=== PATIENT | female | born 1950 | race Caucasian/White ===

== ENCOUNTER → 2016-06-28 | Outpatient (REF) | payer BC ==
[2016-06-28 15:46] LABS: ALBUMIN 3.9 GM/DL (3.2-5.2); ALBUMIN/GLOBULIN RATIO 1.18 (1.00-1.93); ALKALINE PHOSPHATASE 115 U/L (45-117); ALT/SGPT 25 U/L (12-78); ANION GAP 9 MEQ/L (8-16); AST/SGOT 16 U/L (15-37); BILIRUBIN,TOTAL 0.9 MG/DL (0.2-1.0); BLOOD UREA NITROGEN 12 MG/DL (7-18); CALCIUM LEVEL 8.9 MG/DL (8.8-10.2); CARBON DIOXIDE LEVEL 28 MEQ/L (21-32); CHLORIDE LEVEL 105 MEQ/L (98-107); CHOLESTEROL LEVEL 273 MG/DL (<200); CREATININE FOR GFR 0.83 MG/DL (0.55-1.02); GLOMERULAR FILTRATION RATE > 60.0 (>45); GLUCOSE, FASTING 186 MG/DL (80-110); POTASSIUM SERUM 4.4 MEQ/L (3.5-5.1); SODIUM LEVEL 142 MEQ/L (136-145); TOTAL PROTEIN 7.2 GM/DL (6.4-8.2); TRIGLYCERIDES LEVEL 280 MG/DL (<150)
== END ==
LOC: M SFHCSACK 08:34
PROVIDERS: ATTEND Physician Assistant
DX: I10 Essential (primary) hypertension (principal); E78.2 Mixed hyperlipidemia; E11.65 Type 2 diabetes mellitus with hyperglycemia

== ENCOUNTER → 2016-10-02 | Outpatient (REF) | payer BC ==
[2016-10-02 16:57] LABS: ALBUMIN/GLOBULIN RATIO 1.25 (1.00-1.93); ALKALINE PHOSPHATASE 116 U/L (45-117); ALT/SGPT 36 U/L (12-78); ANION GAP 7 MEQ/L (8-16); AST/SGOT 22 U/L (15-37); BLOOD UREA NITROGEN 14 MG/DL (7-18); CARBON DIOXIDE LEVEL 32 MEQ/L (21-32); CHLORIDE LEVEL 103 MEQ/L (98-107); CHOLESTEROL LEVEL 167 MG/DL (<200); CREATININE FOR GFR 0.87 MG/DL (0.55-1.02); GLOMERULAR FILTRATION RATE > 60.0 (>45); GLUCOSE, FASTING 163 MG/DL (80-110); POTASSIUM SERUM 3.6 MEQ/L (3.5-5.1); SODIUM LEVEL 142 MEQ/L (136-145); TOTAL PROTEIN 7.2 GM/DL (6.4-8.2); TRIGLYCERIDES LEVEL 208 MG/DL (<150)
== END ==
LOC: M SFHCSACK 08:45
PROVIDERS: ATTEND Physician Assistant
DX: I10 Essential (primary) hypertension (principal); E11.65 Type 2 diabetes mellitus with hyperglycemia; E78.2 Mixed hyperlipidemia

== ENCOUNTER → 2016-12-09 | Outpatient (CLI) | payer BC ==
--- NOTE | 2016-12-10 06:24 | REP ---
Clinical: Pain. Trauma. Technique: AP, lateral, bilateral oblique views of the right ankle. Findings: Age-related arthritic changes are appreciated along with findings to suggest old injuries. Overlying acute soft tissue swelling noted. No acute fracture dislocation. 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 Acute soft tissue swelling. No acute fracture or dislocation identified. Signed by Anjel Platt MD 12/10/2016 06:16 A
== END ==
LOC: M ADAMS 14:12
PROVIDERS: ATTEND Physician Assistant
DX: M25.571 Pain in right ankle and joints of right foot (principal)

== ENCOUNTER → 2017-02-17 | Outpatient (REF) | payer BC ==
[2017-02-17 17:18] LABS: ALBUMIN 3.8 GM/DL (3.2-5.2); ALBUMIN/GLOBULIN RATIO 1.19 (1.00-1.93); BILIRUBIN,TOTAL 1.4 MG/DL (0.2-1.0); CALCIUM LEVEL 8.6 MG/DL (8.8-10.2); CREATININE FOR GFR 1.84 MG/DL (0.55-1.02); FREE T4 0.96 NG/DL (0.76-1.46); GLOMERULAR FILTRATION RATE 29.1 (>45)
[2017-02-17 17:53] LABS: BASO % 0.2 % (0.0-1.0); EOS # 0.1 K/mm3 (0.0-0.50); EOS % 1.3 % (0.0-3.0); LARGE UNSTAINED CELL # 0.1 K/mm3 (0.0-0.4); LYMPH % 19.7 % (24.0-44.0); MEAN CORPUSCULAR HEMOGLOBIN 34.1 pg (27.0-33.0); MEAN CORPUSCULAR HGB CONC 34.9 g/dl (32.0-36.5); MEAN CORPUSCULAR VOLUME 97.7 fl (80.0-96.0); MONO # 0.7 K/mm3 (0.0-0.8); MONO % 6.9 % (0.0-5.0); NEUTROPHILS % 70.9 % (36.0-66.0); PLATELET COUNT, AUTOMATED 209 k/mm3 (150-450); RED CELL DISTRIBUTION WIDTH 12.2 % (11.5-14.5); WHITE BLOOD COUNT 9.9 K/mm3 (4.0-10.0)
== END ==
LOC: M SFHCSACK 10:26
PROVIDERS: ATTEND Physician Assistant
DX: R53.83 Other fatigue (principal); I10 Essential (primary) hypertension; F41.9 Anxiety disorder, unspecified; E11.65 Type 2 diabetes mellitus with hyperglycemia; E78.2 Mixed hyperlipidemia

== ENCOUNTER → 2017-05-21 | Outpatient (REF) | payer BC ==
[2017-05-21 15:22] LABS: BASO % 0.5 % (0.0-1.0); EOS # 0.2 10^3/uL (0.0-0.50); IMMATURE GRANULOCYTE % 0.4 % (0-0); LYMPH # 1.9 10^3/uL (1.5-4.5); LYMPH % 22.5 % (24.0-44.0); MEAN CORPUSCULAR HEMOGLOBIN 32.9 pg (27.0-33.0); MEAN CORPUSCULAR HGB CONC 34.1 g/dl (32.0-36.5); MEAN CORPUSCULAR VOLUME 96.5 fl (80.0-96.0); MONO # 0.6 10^3/uL (0.0-0.8); MONO % 7.3 % (0.0-5.0); NEUTROPHILS # 5.7 10^3/uL (1.8-7.7); NEUTROPHILS % 67.3 % (36.0-66.0); PLATELET COUNT, AUTOMATED 170 10^3/uL (150-450); RED CELL DISTRIBUTION WIDTH 11.9 % (11.5-14.5); WHITE BLOOD COUNT 8.4 10^3/uL (4.0-10.0)
[2017-05-21 15:34] LABS: ALBUMIN/GLOBULIN RATIO 1.21 (1.00-1.93); ALKALINE PHOSPHATASE 102 U/L (45-117); ALT/SGPT 26 U/L (12-78); ANION GAP 10 MEQ/L (8-16); AST/SGOT 20 U/L (7-37); BILIRUBIN,TOTAL 1.5 MG/DL (0.2-1.0); BLOOD UREA NITROGEN 13 MG/DL (7-18); CALCIUM LEVEL 9.2 MG/DL (8.8-10.2); CARBON DIOXIDE LEVEL 28 MEQ/L (21-32); CHLORIDE LEVEL 100 MEQ/L (98-107); CHOLESTEROL LEVEL 192 MG/DL (<200); CREATININE FOR GFR 0.96 MG/DL (0.55-1.02); GLOMERULAR FILTRATION RATE > 60.0 (>45); GLUCOSE, FASTING 154 MG/DL (80-110); POTASSIUM SERUM 4.2 MEQ/L (3.5-5.1); SODIUM LEVEL 138 MEQ/L (136-145); TOTAL PROTEIN 7.3 GM/DL (6.4-8.2); TRIGLYCERIDES LEVEL 319 MG/DL (<150)
[2017-05-21 15:57] LABS: POS COUNT POS FLAG
[2017-05-21 16:00] LABS: PLT CLUMPS? POS FLAG
== END ==
LOC: M SFHCSACK 08:53
PROVIDERS: ATTEND Physician Assistant
DX: I10 Essential (primary) hypertension (principal); E11.65 Type 2 diabetes mellitus with hyperglycemia; E78.2 Mixed hyperlipidemia; E55.9 Vitamin D deficiency, unspecified

== ENCOUNTER 2017-06-27 13:29 | Emergency (ER) | payer BC ==
[2017-06-27 14:06] LABS: BASO % 0.4 % (0.0-1.0); EOS # 0.1 10^3/uL (0.0-0.50); EOS % 1.3 % (0.0-3.0); HEMATOCRIT 42.8 % (36.0-47.0); HEMOGLOBIN 15.2 g/dl (12.0-16.0); IMMATURE GRANULOCYTE # 0.1 10^3/uL (0-0); IMMATURE GRANULOCYTE % 0.8 % (0-0); LYMPH # 1.6 10^3/uL (1.5-4.5); LYMPH % 15.2 % (24.0-44.0); MEAN CORPUSCULAR HEMOGLOBIN 34.2 pg (27.0-33.0); MEAN CORPUSCULAR HGB CONC 35.5 g/dl (32.0-36.5); MEAN CORPUSCULAR VOLUME 96.2 fl (80.0-96.0); MONO # 0.8 10^3/uL (0.0-0.8); MONO % 7.2 % (0.0-5.0); NEUTROPHILS % 75.1 % (36.0-66.0); PLATELET COUNT, AUTOMATED 205 10^3/uL (150-450); RED BLOOD COUNT 4.45 10^6/uL (4.00-5.40); RED CELL DISTRIBUTION WIDTH 11.9 % (11.5-14.5); WHITE BLOOD COUNT 10.7 10^3/uL (4.0-10.0)
[2017-06-27 14:07] LABS: ALBUMIN 4.1 GM/DL (3.2-5.2); ALBUMIN/GLOBULIN RATIO 1.28 (1.00-1.93); ALKALINE PHOSPHATASE 101 U/L (45-117); ALT/SGPT 27 U/L (12-78); ANION GAP 8 MEQ/L (8-16); AST/SGOT 23 U/L (7-37); BILIRUBIN,DIRECT 0.2 MG/DL (0.0-0.2); BILIRUBIN,TOTAL 1.3 MG/DL (0.2-1.0); BLOOD UREA NITROGEN 16 MG/DL (7-18); CALCIUM LEVEL 9.2 MG/DL (8.8-10.2); CARBON DIOXIDE LEVEL 27 MEQ/L (21-32); CHLORIDE LEVEL 103 MEQ/L (98-107); CREATININE FOR GFR 0.88 MG/DL (0.55-1.02); GLOMERULAR FILTRATION RATE > 60.0 (>45); GLUCOSE, FASTING 144 MG/DL (80-110); POTASSIUM SERUM 3.7 MEQ/L (3.5-5.1); SODIUM LEVEL 138 MEQ/L (136-145); TOTAL PROTEIN 7.3 GM/DL (6.4-8.2)
[2017-06-27] MEDS: LIDOCAINE 2% W/EPIN INJ 20ML **PRES FREE INJ (15:18)
== END 2017-06-27 16:44 | disposition home or self-care (01) ==
LOC: M ED 13:29
DX: S06.0X0A Concussion without loss of consciousness, initial encounter (principal); S51.011A Laceration without foreign body of right elbow, initial encounter; R11.10 Vomiting, unspecified; W19.XXXA Unspecified fall, initial encounter; Y92.098 Other place in other non-institutional residence as the place of occurrence of the external cause; Y93.89 Activity, other specified; Y99.8 Other external cause status; I10 Essential (primary) hypertension; E78.9 Disorder of lipoprotein metabolism, unspecified; E11.9 Type 2 diabetes mellitus without complications; Z87.891 Personal history of nicotine dependence; Z79.899 Other long term (current) drug therapy; Z79.84 Long term (current) use of oral hypoglycemic drugs
CPT/HCPCS: 70450

== ENCOUNTER → 2017-07-09 | Outpatient (CLI) | payer BC | LOC: M ADAMS 10:10 | DX: M25.561 Pain in right knee (principal); M17.9 Osteoarthritis of knee, unspecified | CPT/HCPCS: 73564 ==

== ENCOUNTER → 2017-08-18 | Outpatient (REF) | payer BC ==
[2017-08-18 14:12] LABS: BASO % 0.3 % (0.0-1.0); EOS # 0.1 10^3/uL (0.0-0.50); EOS % 1.2 % (0.0-3.0); HEMATOCRIT 40.4 % (36.0-47.0); HEMOGLOBIN 14.4 g/dl (12.0-16.0); IMMATURE GRANULOCYTE % 1.3 % (0-3.0); LYMPH # 1.8 10^3/uL (1.5-4.5); LYMPH % 29.5 % (24.0-44.0); MEAN CORPUSCULAR HEMOGLOBIN 33.4 pg (27.0-33.0); MEAN CORPUSCULAR HGB CONC 35.6 g/dl (32.0-36.5); MEAN CORPUSCULAR VOLUME 93.7 fl (80.0-96.0); MONO # 0.5 10^3/uL (0.0-0.8); MONO % 8.7 % (0.0-5.0); NEUTROPHILS # 3.6 10^3/uL (1.8-7.7); PLATELET COUNT, AUTOMATED 258 10^3/uL (150-450); RED BLOOD COUNT 4.31 10^6/uL (4.00-5.40); RED CELL DISTRIBUTION WIDTH 11.5 % (11.5-14.5); WHITE BLOOD COUNT 6.1 10^3/uL (4.0-10.0)
[2017-08-18 14:29] LABS: ALBUMIN 3.9 GM/DL (3.2-5.2); ALBUMIN/GLOBULIN RATIO 1.26 (1.00-1.93); ALKALINE PHOSPHATASE 102 U/L (45-117); ALT/SGPT 31 U/L (12-78); ANION GAP 8 MEQ/L (8-16); AST/SGOT 15 U/L (7-37); BILIRUBIN,TOTAL 1.1 MG/DL (0.2-1.0); BLOOD UREA NITROGEN 12 MG/DL (7-18); CALCIUM LEVEL 9.1 MG/DL (8.8-10.2); CARBON DIOXIDE LEVEL 28 MEQ/L (21-32); CHLORIDE LEVEL 106 MEQ/L (98-107); CHOLESTEROL LEVEL 125 MG/DL (<200); CHOLESTEROL RISK RATIO 3.205 (<5); CREATININE FOR GFR 0.75 MG/DL (0.55-1.30); GLOMERULAR FILTRATION RATE > 60.0 (>45); GLUCOSE, FASTING 190 MG/DL (70-100); HDL CHOLESTEROL 39 MG/DL (>40); LDL CHOLESTEROL 33.2 MG/DL (<100); NON-HDL-C 86 MG/DL; POTASSIUM SERUM 3.5 MEQ/L (3.5-5.1); SODIUM LEVEL 142 MEQ/L (136-145); TOTAL 25(OH) VITAMIN D 58.8 NG/ML (30.0-100.0); TRIGLYCERIDES LEVEL 264 MG/DL (<150)
[2017-08-18 14:32] LABS: ESTIMATED AVERAGE GLUCOSE 154 MG/DL (60-110)
[2017-08-20 11:47] LABS: HEPATITIS B SURFACE ANTIBODY NEGATIVE (POSITIVE)
== END ==
LOC: M SFHCSACK 10:51
DX: I10 Essential (primary) hypertension (principal); E78.2 Mixed hyperlipidemia; E11.65 Type 2 diabetes mellitus with hyperglycemia; E55.9 Vitamin D deficiency, unspecified
CPT/HCPCS: 80053

== ENCOUNTER → 2017-12-03 | Outpatient (REF) | payer MEDICARE ==
[2017-12-03 11:27] LABS: BASO % 0.4 % (0.0-1.0); EOS # 0.1 10^3/uL (0.0-0.50); HEMATOCRIT 41.2 % (36.0-47.0); HEMOGLOBIN 14.3 g/dl (12.0-15.5); IMMATURE GRANULOCYTE % 0.7 % (0-3.0); LYMPH # 2.2 10^3/uL (1.5-4.5); MEAN CORPUSCULAR HGB CONC 34.7 g/dl (32.0-36.5); MEAN CORPUSCULAR VOLUME 97.9 fl (80.0-96.0); MONO # 0.7 10^3/uL (0.0-0.8); NEUTROPHILS # 6.9 10^3/uL (1.8-7.7); NEUTROPHILS % 68.9 % (36.0-66.0); PLATELET COUNT, AUTOMATED 254 10^3/uL (150-450); RED BLOOD COUNT 4.21 10^6/uL (4.00-5.40); RED CELL DISTRIBUTION WIDTH 12.5 % (11.5-14.5)
[2017-12-03 11:44] LABS: TOTAL 25(OH) VITAMIN D 38.8 NG/ML (30.0-100.0)
[2017-12-03 11:45] LABS: ALBUMIN/GLOBULIN RATIO 1.11 (1.00-1.93); ALKALINE PHOSPHATASE 106 U/L (45-117); ALT/SGPT 20 U/L (12-78); ANION GAP 13 MEQ/L (8-16); AST/SGOT 16 U/L (7-37); BILIRUBIN,TOTAL 1.5 MG/DL (0.2-1.0); BLOOD UREA NITROGEN 18 MG/DL (7-18); CALCIUM LEVEL 8.9 MG/DL (8.8-10.2); CARBON DIOXIDE LEVEL 23 MEQ/L (21-32); CHLORIDE LEVEL 103 MEQ/L (98-107); CHOLESTEROL LEVEL 216 MG/DL (<200); CREATININE FOR GFR 1.18 MG/DL (0.55-1.30); GLOMERULAR FILTRATION RATE 48.6 (>45); GLUCOSE, FASTING 149 MG/DL (70-100); HDL CHOLESTEROL 60 MG/DL (>40); NON-HDL-C 156 MG/DL; POTASSIUM SERUM 4.1 MEQ/L (3.5-5.1); SODIUM LEVEL 139 MEQ/L (136-145); TOTAL PROTEIN 7.6 GM/DL (6.4-8.2); TRIGLYCERIDES LEVEL 190 MG/DL (<150)
[2017-12-03 11:48] LABS: ESTIMATED AVERAGE GLUCOSE 148 MG/DL (60-110); HEMOGLOBIN A1c 6.8 %
== END ==
LOC: M LABDRAW1 09:37
DX: I10 Essential (primary) hypertension (principal); E78.2 Mixed hyperlipidemia; E11.65 Type 2 diabetes mellitus with hyperglycemia; E55.9 Vitamin D deficiency, unspecified
CPT/HCPCS: 80053

== ENCOUNTER → 2018-05-06 | Outpatient (REF) | payer MEDICARE, BC ==
[2018-05-06 14:26] LABS: BASO # 0.1 10^3/uL (0.0-0.2); BASO % 0.4 % (0.0-1.0); EOS # 0.1 10^3/uL (0.0-0.50); EOS % 1.1 % (0.0-3.0); HEMATOCRIT 43.3 % (36.0-47.0); HEMOGLOBIN 15.4 g/dl (12.0-15.5); IMMATURE GRANULOCYTE % 0.5 % (0-3.0); LYMPH # 2.5 10^3/uL (1.5-4.5); LYMPH % 21.6 % (24.0-44.0); MEAN CORPUSCULAR HEMOGLOBIN 34.5 pg (27.0-33.0); MEAN CORPUSCULAR HGB CONC 35.6 g/dl (32.0-36.5); MEAN CORPUSCULAR VOLUME 96.9 fl (80.0-96.0); MONO # 0.9 10^3/uL (0.0-0.8); MONO % 7.8 % (0.0-5.0); NEUTROPHILS # 7.8 10^3/uL (1.8-7.7); NEUTROPHILS % 68.6 % (36.0-66.0); PLATELET COUNT, AUTOMATED 227 10^3/uL (150-450); RED BLOOD COUNT 4.47 10^6/uL (4.00-5.40); RED CELL DISTRIBUTION WIDTH 11.6 % (11.5-14.5); WHITE BLOOD COUNT 11.3 10^3/uL (4.0-10.0)
[2018-05-06 14:29] LABS: ALBUMIN/GLOBULIN RATIO 1.08 (1.00-1.93); ALKALINE PHOSPHATASE 112 U/L (45-117); ALT/SGPT 30 U/L (12-78); ANION GAP 11 MEQ/L (8-16); AST/SGOT 25 U/L (7-37); BILIRUBIN,TOTAL 1.8 MG/DL (0.2-1.0); BLOOD UREA NITROGEN 16 MG/DL (7-18); CALCIUM LEVEL 9.1 MG/DL (8.8-10.2); CARBON DIOXIDE LEVEL 28 MEQ/L (21-32); CHLORIDE LEVEL 99 MEQ/L (98-107); CHOLESTEROL LEVEL 224 MG/DL (<200); CREATININE FOR GFR 0.89 MG/DL (0.55-1.30); FREE T4 1.02 NG/DL (0.76-1.46); GLOMERULAR FILTRATION RATE > 60.0 (>45); GLUCOSE, FASTING 144 MG/DL (70-100); HDL CHOLESTEROL 56 MG/DL (>40); LDL CHOLESTEROL 122 MG/DL (<100); NON-HDL-C 168 MG/DL; POTASSIUM SERUM 3.6 MEQ/L (3.5-5.1); SODIUM LEVEL 138 MEQ/L (136-145); TOTAL PROTEIN 7.7 GM/DL (6.4-8.2); TRIGLYCERIDES LEVEL 231 MG/DL (<150)
[2018-05-06 14:46] LABS: MALB URINE SIEMENS 13.3 MG/L; MAU/CREAT RATIO 8.2 MCG/MG (0.0-30.0)
[2018-05-06 16:16] LABS: ESTIMATED AVERAGE GLUCOSE 140 MG/DL (60-110); HEMOGLOBIN A1c 6.5 %
== END ==
LOC: M SFHCSACK 08:45
DX: E78.2 Mixed hyperlipidemia (principal); I10 Essential (primary) hypertension; Z13.29 Encounter for screening for other suspected endocrine disorder; E11.65 Type 2 diabetes mellitus with hyperglycemia; E55.9 Vitamin D deficiency, unspecified
CPT/HCPCS: 84443

== ENCOUNTER → 2018-11-09 | Outpatient (REF) | payer MEDICARE, BC ==
[~2018-11-09] MED LIST: AMLO5TAB6 PO; ATOR80TA59 PO; CART240C3 PO; FARX1TAB3 PO; HYDR25TAB PO; LOSA100T50 PO; METF10004 PO; SERT-155 PO; VITA50005 PO; ZOFR4TAB14 PO
== END ==
LOC: M SFHCSACK 08:43
PROVIDERS: ATTEND Physician Assistant
DX: I10 Essential (primary) hypertension (principal); E78.2 Mixed hyperlipidemia; E11.65 Type 2 diabetes mellitus with hyperglycemia; E55.9 Vitamin D deficiency, unspecified; Z53.8 Procedure and treatment not carried out for other reasons

== ENCOUNTER → 2018-11-17 | Outpatient (REF) | payer MEDICARE, BC ==
[2018-11-17 13:23] LABS: BASO % 0.3 % (0.0-1.0); EOS # 0.2 10^3/uL (0.0-0.50); EOS % 2.4 % (0.0-3.0); HEMATOCRIT 41.2 % (36.0-47.0); HEMOGLOBIN 14.4 g/dl (12.0-15.5); LYMPH # 1.6 10^3/uL (1.5-4.5); LYMPH % 21.8 % (24.0-44.0); MONO # 0.5 10^3/uL (0.0-0.8); MONO % 6.6 % (0.0-5.0); NEUTROPHILS # 5.1 10^3/uL (1.8-7.7); NEUTROPHILS % 68.5 % (36.0-66.0); PLATELET COUNT, AUTOMATED 228 10^3/uL (150-450); RED BLOOD COUNT 4.12 10^6/uL (4.00-5.40); WHITE BLOOD COUNT 7.5 10^3/uL (4.0-10.0)
[2018-11-17 13:32] LABS: ALT/SGPT 29 U/L (12-78); BILIRUBIN,TOTAL 1.3 MG/DL (0.2-1.0); BLOOD UREA NITROGEN 10 MG/DL (7-18); CALCIUM LEVEL 9.6 MG/DL (8.8-10.2); CARBON DIOXIDE LEVEL 27 MEQ/L (21-32); CHLORIDE LEVEL 103 MEQ/L (98-107); CREATININE FOR GFR 0.85 MG/DL (0.55-1.30); GLOMERULAR FILTRATION RATE > 60.0 (>45); GLUCOSE, FASTING 171 MG/DL (70-100); POTASSIUM SERUM 3.9 MEQ/L (3.5-5.1); SODIUM LEVEL 138 MEQ/L (136-145)
[2018-11-17 14:05] LABS: HEMOGLOBIN A1c 7.4 %
== END ==
LOC: M SFHCSACK 10:17
PROVIDERS: ATTEND Physician Assistant
DX: I10 Essential (primary) hypertension (principal); E78.2 Mixed hyperlipidemia; E11.65 Type 2 diabetes mellitus with hyperglycemia; E55.9 Vitamin D deficiency, unspecified

== ENCOUNTER 2019-01-19 09:44 | Emergency (ER) | payer BC, MEDICARE ==
[~2019-01-19] VITALS: Ht 162.6 cm; Wt 72.7 kg
[~2019-01-19 09:44] MED LIST changes: -SERT-155 PO; +SERT50TA29 PO
[2019-01-19] MEDS ORDERED: BUPIVACAINE HCL 0.5% 30 ML VIAL SC ONE (11:15)
[2019-01-19 11:46] LABS: BASO % 0.3 % (0.0-1.0); EOS % 0.2 % (0.0-3.0); HEMATOCRIT 39.8 % (36.0-47.0); HEMOGLOBIN 13.8 g/dl (12.0-15.5); LYMPH # 0.8 10^3/uL (1.5-4.5); LYMPH % 5.4 % (24.0-44.0); MEAN CORPUSCULAR HEMOGLOBIN 34.9 pg (27.0-33.0); MEAN CORPUSCULAR HGB CONC 34.7 g/dl (32.0-36.5); MEAN CORPUSCULAR VOLUME 100.8 fl (80.0-96.0); MONO # 1.1 10^3/uL (0.0-0.8); MONO % 7.5 % (0.0-5.0); NEUTROPHILS % 86.2 % (36.0-66.0); PLATELET COUNT, AUTOMATED 246 10^3/uL (150-450); RED BLOOD COUNT 3.95 10^6/uL (4.00-5.40); WHITE BLOOD COUNT 15.1 10^3/uL (4.0-10.0)
[2019-01-19] MEDS ORDERED: ISOVUE-370 76% 100ML VIAL (Q9967) As Ordered ONE (11:56)
[2019-01-19 12:10] LABS: ERYTHROCYTE SEDIMENTATION RATE 70 mm/hr (0-30)
[2019-01-19 12:15] LABS: FREE T4 1.26 NG/DL (0.76-1.46)
[2019-01-19 12:34] LABS: MONO SCRN NEGATIVE (NEGATIVE)
--- NOTE | 2019-01-19 12:36 | REP ---
Clinical: Trauma/fall with chest pain. Technique: Axial contrast enhanced images from the thoracic inlet to the upper abdomen with coronal and sagittal re-formations. Comparison: None. Findings: Lung rangel demonstrate age-related scattered chronic interstitial changes including biapical and bibasilar scarring. No significant focal consolidation/contusion, pleural effusion, or pneumothorax. Trace right basilar atelectasis cannot be excluded. Small noncalcified nodular densities primarily noted in the right upper lung zone measuring up to approximately 5 mm (image 38) are identified. Evaluation of the mediastinum demonstrates atherosclerotic changes to the thoracic aorta and coronary arteries without aortic aneurysm or dissection. No cardiomegaly or pericardial effusion identified. Nonspecific mediastinal lymph nodes measure up to approximately 9.6 mm short axis diameter. Surrounding musculoskeletal structures demonstrate age-related degenerative changes without evidence for acute trauma/injury or fracture. Impression: 1. Chronic-appearing scattered interstitial changes and scarring. No consolidation, contusion, or effusion. 2. New small nodules up to 5 mm primarily noted in the right upper lung zone. No prior examinations available for comparison. Consider follow-up examination in 6-9 months. Electronically Signed by Anjel Platt MD 01/19/2019 12:27 P
--- NOTE | 2019-01-19 13:37 | REP ---
SOFT-TISSUE NECK CT STUDY WITH IV CONTRAST: HISTORY: Neck and upper chest pain after a fall. Soft tissue swelling. CT CONTRAST DOSE: 100 mL of intravenous Isovue [address] FINDINGS: Thyroid lobes are homogeneous and normal in appearance. Parotid and submandibular glands are normal and symmetric. There is no visible neck mass. There is soft tissue swelling in the anterior neck soft tissues posterior to the external jugular veins and anterior to the thyroid and upper trachea. This is deep to the distal sternocleidomastoid muscles. No adenopathy is appreciated. There is some vascular calcification at the carotid bifurcations. No other vascular abnormality is appreciated. Visualized intracranial structures are unremarkable. The paranasal sinuses are clear. No fracture is seen. There is mild degenerative disc disease noted at the each level in the cervical spine. This is most pronounced at C5-6 and C6-7. The epiglottis appears intact. There is no evidence of thyroid cartilage disruption. The arytenoid cartilages are normal and symmetric in appearance and position. No glottic or subglottic airway narrowing is seen. Hyoid bone is intact. IMPRESSION: There is an area of soft tissue swelling deep to the distal sternocleidomastoid muscles and anterior to the thyroid in the anterior/inferior neck consistent with soft tissue injury. Otherwise negative. No evidence of airway disruption. Electronically Signed by Clinton Mondragon MD 01/19/2019 02:24 P
[2019-01-19 13:58] VITALS: BP 219/97
--- NOTE | 2019-01-25 21:02 | ED PDOC ---
Post-Departure Follow-Up rosaline plata faxed formal report of ct chest for fu Miracle Granado MD Jan 25, 2019 21:01
== END 2019-01-19 14:17 | disposition home or self-care (01) ==
LOC: M ED 09:44
DX: R22.1 Localized swelling, mass and lump, neck (principal); M54.2 Cervicalgia; R91.8 Other nonspecific abnormal finding of lung field; I10 Essential (primary) hypertension; Z91.81 History of falling; Z87.891 Personal history of nicotine dependence; Z79.899 Other long term (current) drug therapy; Z79.84 Long term (current) use of oral hypoglycemic drugs
CPT/HCPCS: 20552; 70491; 71260; 80047; 84439; 84443; 85025; 85652; 86308; 99284; Q9967

== ENCOUNTER → 2019-02-26 | Outpatient (REF) | payer MEDICARE ==
[~2019-02-26] MED LIST changes: +SERT-155 PO; -SERT50TA29 PO
[2019-02-26 15:49] LABS: ALBUMIN 3.3 GM/DL (3.2-5.2); ALT/SGPT 29 U/L (12-78); BILIRUBIN,TOTAL 1.2 MG/DL (0.2-1.0); BLOOD UREA NITROGEN 10 MG/DL (7-18); CALCIUM LEVEL 8.8 MG/DL (8.8-10.2); CARBON DIOXIDE LEVEL 26 MEQ/L (21-32); CHLORIDE LEVEL 103 MEQ/L (98-107); CHOLESTEROL LEVEL 133 MG/DL (<200); CHOLESTEROL RISK RATIO 3.694 (<5); GLOMERULAR FILTRATION RATE > 60.0 (>45); GLUCOSE, FASTING 322 MG/DL (70-100); HDL CHOLESTEROL 36 MG/DL (>40); LDL CHOLESTEROL 55 MG/DL (<100); NON-HDL-C 97 MG/DL; POTASSIUM SERUM 4.1 MEQ/L (3.5-5.1); SODIUM LEVEL 138 MEQ/L (136-145); TOTAL PROTEIN 6.2 GM/DL (6.4-8.2); TRIGLYCERIDES LEVEL 211 MG/DL (<150)
[2019-02-26 15:57] LABS: TOTAL 25(OH) VITAMIN D 55.7 NG/ML (30.0-100.0)
[2019-02-26 15:58] LABS: BASO % 0.5 % (0.0-1.0); EOS # 0.2 10^3/uL (0.0-0.5); EOS % 3.6 % (0.0-3.0); HEMATOCRIT 38.1 % (36.0-47.0); HEMOGLOBIN 12.8 g/dl (12.0-15.5); LYMPH # 1.6 10^3/uL (1.5-5.0); LYMPH % 25.2 % (24.0-44.0); MEAN CORPUSCULAR HEMOGLOBIN 33.9 pg (27.0-33.0); MEAN CORPUSCULAR HGB CONC 33.6 g/dl (32.0-36.5); MEAN CORPUSCULAR VOLUME 100.8 fl (80.0-96.0); MONO # 0.4 10^3/uL (0.0-0.8); MONO % 7.2 % (0.0-5.0); NEUTROPHILS # 3.9 10^3/uL (1.5-8.5); PLATELET COUNT, AUTOMATED 244 10^3/uL (150-450); RED BLOOD COUNT 3.78 10^6/uL (4.00-5.40); WHITE BLOOD COUNT 6.1 10^3/uL (4.0-10.0)
[2019-02-26 16:21] LABS: MALB URINE SIEMENS 11.4 MG/L; MAU/CREAT RATIO 8.2 MCG/MG (0.0-30.0)
[2019-02-26 16:22] LABS: HEMOGLOBIN A1c 12.4 %
== END ==
LOC: M SFHCSACK 08:21
PROVIDERS: ATTEND Physician Assistant
DX: I10 Essential (primary) hypertension (principal); E78.2 Mixed hyperlipidemia; E11.65 Type 2 diabetes mellitus with hyperglycemia; E55.9 Vitamin D deficiency, unspecified

== ENCOUNTER → 2019-03-19 | Outpatient (CLI) | payer MEDICARE ==
[~2019-03-19] MED LIST changes: +E-Z-GAS II EFFERVESCENT PACKET (SODIUM BICARB./CITRIC ACID/SIMETHICONE) As Ordered ONE; +E-Z-HD 98% w/w 340GM SUSP BTL As Ordered ONE; +E-Z-PAQUE 96% w/w SUSP 176GM BTL As Ordered ONE
--- NOTE | 2019-03-19 15:23 | REP ---
Examination Requested: Esophagram Barium Swallow Reason For Exam/Comment: Dysphasia Esophagram: The procedure was performed MEENAKSHI Rose, under the direct supervision of Dr. Deutsch. The images were reviewed with Dr. Deutsch. A single PA chest x-ray is submitted as a freight flagman film. The superior mediastinal structures are midline. The heart size is within normal limits. The lungs are clear. Liquid barium and gas producing granules were given in the erect position as well as liquid barium in the prone oblique position, in order to perform a double contrast esophagram examination. Oral and pharyngeal stages of the examination were unremarkable. Esophageal transport is efficient and there is no esophagitis, stricture, or mucosal ring noted. There is a small hiatal hernia . Gastroesophageal reflux is visualized to the thoracic inlet. Impression: 1. Small hiatal hernia. 2. Gastroesophageal reflux to the thoracic inlet. 0.2 minutes of fluoroscopy time was utilized for this procedure. Some fluoroscopic images are performed with last image hold technology. These images require no additional radiation. Reviewed by MEENAKSHI Schwartz 03/19/2019 01:41 P Electronically Signed by Mello Deutsch MD 03/19/2019 03:14 P
== END ==
LOC: M RAD 08:05
PROVIDERS: ATTEND Nurse Practitioner
DX: R13.10 Dysphagia, unspecified (principal); K44.9 Diaphragmatic hernia without obstruction or gangrene; K21.9 Gastro-esophageal reflux disease without esophagitis

== ENCOUNTER 2019-04-01 08:25 | Day surgery (SDC) | payer MEDICARE ==
[~2019-04-01] VITALS: Ht 162.6 cm; Wt 65.3 kg
[~2019-04-01 08:25] MED LIST changes: -E-Z-GAS II EFFERVESCENT PACKET (SODIUM BICARB./CITRIC ACID/SIMETHICONE) As Ordered ONE; -E-Z-HD 98% w/w 340GM SUSP BTL As Ordered ONE; -E-Z-PAQUE 96% w/w SUSP 176GM BTL As Ordered ONE; +NS 1,000 ML IV ONE
[2019-04-01] MEDS ORDERED: PROPOFOL 200 MG/20 ML VIAL As Ordered ONE (09:21)
[2019-04-01] MEDS ORDERED: LIDOCAINE 2% INJ 100 MG/5 ML SDV (FOR ANES.) As Ordered ONE (09:21)
--- NOTE | 2019-04-01 09:54 | ROOR ---
Patient Name: Aishwarya Duke Procedure Date: 04/01/2019 9:41 AM Date of : 1950 Age: 69 Room: [facility] Gender: Female Note Status: Finalized Procedure: Upper GI endoscopy Indications: Dysphagia Providers: Yordy Montero Jr, MD Referring MD: BISMARK Brizuela Pa-c Requesting Provider: Medicines: Propofol per Anesthesia Complications: No immediate complications. Procedure: Pre-Anesthesia Assessment: - Prior to the procedure, a History and Physical was performed, and patient medications and allergies were reviewed. The patient is competent. The risks and benefits of the procedure and the sedation options and risks were discussed with the patient. All questions were answered and informed consent was obtained. Patient identification and proposed procedure were verified by the physician and the nurse in the pre-procedure area and in the procedure room. Mental Status Examination: alert and oriented. Airway Examination: normal oropharyngeal airway and neck mobility. Respiratory Examination: clear to auscultation. CV Examination: normal. ASA Grade Assessment: II - A patient with mild systemic disease. After reviewing the risks and benefits, the patient was deemed in satisfactory condition to undergo the procedure. The anesthesia plan was to use moderate sedation / analgesia (conscious sedation). Immediately prior to administration of medications, the patient was re-assessed for adequacy to receive sedatives. The heart rate, respiratory rate, oxygen saturations, blood pressure, adequacy of pulmonary ventilation, and response to care were monitored throughout the procedure. The physical status of the patient was re-assessed after the procedure. The Endoscope was introduced through the mouth, and advanced to the second part of duodenum. The upper GI endoscopy was accomplished without difficulty. The patient tolerated the procedure well. Findings: The upper third of the esophagus, middle third of the esophagus, lower third of the esophagus and gastroesophageal junction were normal. The cardia, gastric fundus and gastric body were normal. Scattered moderate inflammation characterized by congestion (edema), erythema, friability and granularity was found in the gastric antrum and in the prepyloric region of the stomach. Biopsies were taken with a cold forceps for histology. The duodenal bulb, first portion of the duodenum and second portion of the duodenum were normal. Impression: - Normal upper third of esophagus, middle third of esophagus, lower third of esophagus and gastroesophageal junction. - Normal cardia, gastric fundus and gastric body. - Gastritis. Biopsied. - Normal duodenal bulb, first portion of the duodenum and second portion of the duodenum. Recommendation: - Discharge patient to home (ambulatory). - Return to my office as previously scheduled. Yordy Montero MD Yordy Montero Jr, MD 04/01/2019 9:54:12 AM Electronically signed by Yordy Montero Jr, MD Number of Addenda: 0 Note Initiated On: 04/01/2019 9:41 AM Estimated Blood Loss: Estimated blood loss: none.
--- NOTE | 2019-04-01 10:13 | ROOR ---
Patient Name: Aishwarya Duke Procedure Date: 04/01/2019 9:42 AM Date of : 1950 Age: 69 Room: [facility] Gender: Female Note Status: Finalized Procedure: Colonoscopy Indications: High risk colon cancer surveillance: Personal history of colonic polyps Providers: Yordy Montero Jr, MD Referring MD: BISMARK Brizuela Pa-c Requesting Provider: Medicines: Propofol per Anesthesia Complications: No immediate complications. Procedure: Pre-Anesthesia Assessment: - Prior to the procedure, a History and Physical was performed, and patient medications and allergies were reviewed. The patient is competent. The risks and benefits of the procedure and the sedation options and risks were discussed with the patient. All questions were answered and informed consent was obtained. Patient identification and proposed procedure were verified by the physician and the nurse in the pre-procedure area and in the procedure room. Mental Status Examination: alert and oriented. Airway Examination: normal oropharyngeal airway and neck mobility. Respiratory Examination: clear to auscultation. CV Examination: normal. ASA Grade Assessment: II - A patient with mild systemic disease. After reviewing the risks and benefits, the patient was deemed in satisfactory condition to undergo the procedure. The anesthesia plan was to use moderate sedation / analgesia (conscious sedation). Immediately prior to administration of medications, the patient was re-assessed for adequacy to receive sedatives. The heart rate, respiratory rate, oxygen saturations, blood pressure, adequacy of pulmonary ventilation, and response to care were monitored throughout the procedure. The physical status of the patient was re-assessed after the procedure. The Colonoscope was introduced through the anus and advanced to the cecum, identified by appendiceal orifice and ileocecal valve. The colonoscopy was performed without difficulty. The patient tolerated the procedure well. The quality of the bowel preparation was adequate. Findings: The rectum, descending colon, transverse colon, ascending colon, cecum, appendiceal orifice and ileocecal valve appeared normal. Multiple small and large-mouthed diverticula were found in the sigmoid colon. A diminutive polyp was found in the sigmoid colon. The polyp was removed with a jumbo cold forceps. Resection and retrieval were complete. Impression: - The rectum, descending colon, transverse colon, ascending colon, cecum, appendiceal orifice and ileocecal valve are normal. - Diverticulosis in the sigmoid colon. - One diminutive polyp in the sigmoid colon, removed with a jumbo cold forceps. Resected and retrieved. Recommendation: - Repeat colonoscopy in 5-10 years for surveillance based on pathology results. Yordy Montero MD Yordy Montero Jr, MD 04/01/2019 10:12:57 AM Electronically signed by Yordy Montero Jr, MD Number of Addenda: 0 Note Initiated On: 04/01/2019 9:42 AM Estimated Blood Loss: Estimated blood loss: none.
[2019-04-01 10:25] VITALS: BP 128/65
== END 2019-04-01 10:45 | disposition home or self-care (01) ==
LOC: M OPP 08:25
PROVIDERS: ATTEND Surgery
DX: Z86.010 Personal history of colon polyps (principal); K57.30 Diverticulosis of large intestine without perforation or abscess without bleeding; D12.5 Benign neoplasm of sigmoid colon; R63.4 Abnormal weight loss; K29.70 Gastritis, unspecified, without bleeding; R13.10 Dysphagia, unspecified; E11.9 Type 2 diabetes mellitus without complications; Z79.84 Long term (current) use of oral hypoglycemic drugs; Z79.899 Other long term (current) drug therapy; Z87.891 Personal history of nicotine dependence

== ENCOUNTER → 2019-05-12 | Outpatient (REF) | payer MEDICARE ==
[~2019-05-12] MED LIST changes: -NS 1,000 ML IV ONE; -SERT-155 PO; +SERT50TA29 PO
[2019-05-12 14:12] LABS: BASO % 0.3 % (0.0-1.0); EOS # 0.2 10^3/uL (0.0-0.5); EOS % 2.5 % (0.0-3.0); HEMATOCRIT 42.8 % (36.0-47.0); HEMOGLOBIN 14.6 g/dl (12.0-15.5); LYMPH # 2.4 10^3/uL (1.5-5.0); LYMPH % 27.4 % (24.0-44.0); MEAN CORPUSCULAR HEMOGLOBIN 31.7 pg (27.0-33.0); MEAN CORPUSCULAR HGB CONC 34.1 g/dl (32.0-36.5); MEAN CORPUSCULAR VOLUME 92.8 fl (80.0-96.0); MONO # 0.5 10^3/uL (0.0-0.8); MONO % 5.4 % (0.0-5.0); NEUTROPHILS # 5.7 10^3/uL (1.5-8.5); NEUTROPHILS % 64.1 % (36.0-66.0); PLATELET COUNT, AUTOMATED 237 10^3/uL (150-450); RED BLOOD COUNT 4.61 10^6/uL (4.00-5.40); WHITE BLOOD COUNT 8.8 10^3/uL (4.0-10.0)
[2019-05-12 14:24] LABS: ALBUMIN 3.9 GM/DL (3.2-5.2); ALT/SGPT 28 U/L (12-78); BILIRUBIN,TOTAL 1.3 MG/DL (0.2-1.0); BLOOD UREA NITROGEN 13 MG/DL (7-18); CALCIUM LEVEL 9.7 MG/DL (8.8-10.2); CARBON DIOXIDE LEVEL 28 MEQ/L (21-32); CHLORIDE LEVEL 103 MEQ/L (98-107); CHOLESTEROL LEVEL 155 MG/DL (<200); CHOLESTEROL RISK RATIO 3.163 (<5); CREATININE FOR GFR 0.79 MG/DL (0.55-1.30); FERRITIN 146 NG/ML (8-252); GLOMERULAR FILTRATION RATE > 60.0 (>45); GLUCOSE, FASTING 300 MG/DL (70-100); HDL CHOLESTEROL 49 MG/DL (>40); IRON (FE) 66 UG/DL (50-170); LDL CHOLESTEROL 71 MG/DL (<100); NON-HDL-C 106 MG/DL; PERCENT SATURATION 21.6 % (13.2-45.0); POTASSIUM SERUM 3.9 MEQ/L (3.5-5.1); SODIUM LEVEL 137 MEQ/L (136-145); TOTAL IRON BINDING CAPACITY 305 UG/DL (250-450); TRIGLYCERIDES LEVEL 176 MG/DL (<150)
[2019-05-12 14:26] LABS: TOTAL 25(OH) VITAMIN D 47.6 NG/ML (30.0-100.0)
[2019-05-12 14:34] LABS: HEMOGLOBIN A1c 12.4 %
== END ==
LOC: M SFHCSACK 09:49
PROVIDERS: ATTEND Physician Assistant
DX: D64.9 Anemia, unspecified (principal); E78.2 Mixed hyperlipidemia; F41.9 Anxiety disorder, unspecified; E55.9 Vitamin D deficiency, unspecified; E11.65 Type 2 diabetes mellitus with hyperglycemia

== ENCOUNTER → 2019-07-14 | Outpatient (REF) | payer MEDICARE | LOC: M LABDRWAD 13:27 | PROVIDERS: ATTEND Internal Medicine Endocrinology, Diabetes & Metabolism | DX: E11.65 Type 2 diabetes mellitus with hyperglycemia (principal) ==

== ENCOUNTER → 2019-08-02 | Outpatient (CLI) | payer MEDICARE ==
--- NOTE | 2019-08-02 10:53 | REP ---
Clinical: Follow up abnormal findings. Technique: Axial noncontrast images from the thoracic inlet to the upper abdomen eighth coronal and sagittal re-formations. Comparison: 01/02/2019 Findings: Lung rangel demonstrate chronic stable scattered scarring and interstitial changes along with small scattered subpleural densities, solid, partially calcified, and nonsolid nodular lesions which are either stable or have resolved when compared to prior examination. As example, the posterior right lower lobe nodule which measured approximately 7 mm has completely resolved on current examination. No new area of consolidation, significant nodule or mass lesion appreciated. No effusion. No pneumothorax. Tracheobronchial tree is patent. No significant adenopathy. Atherosclerotic changes to the thoracic aorta and coronary arteries noted without aortic aneurysm or cardiomegaly. No pericardial effusion. Musculoskeletal structures demonstrate age-related changes without acute focal abnormality. Impression: 1. Chronic stable changes as compared to prior examination including scattered solid and non solid nodules. Few previously identified nodules have also resolved and may have represented small focal areas of transient atelectasis. 2. No acute significant mediastinal or pleuroparenchymal process appreciated. Electronically Signed by Anjel Platt MD 08/02/2019 10:45 A
== END ==
LOC: M RAD 09:56
PROVIDERS: ATTEND Internal Medicine Pulmonary Disease
DX: R91.8 Other nonspecific abnormal finding of lung field (principal)

== ENCOUNTER → 2019-08-24 | Outpatient (REF) | payer MEDICARE ==
[2019-08-24 13:41] LABS: BASO % 0.4 % (0.0-1.0); EOS # 0.4 10^3/uL (0.0-0.5); EOS % 4.9 % (0.0-3.0); HEMATOCRIT 42.6 % (36.0-47.0); HEMOGLOBIN 14.6 g/dl (12.0-15.5); LYMPH # 2.4 10^3/uL (1.5-5.0); LYMPH % 26.8 % (24.0-44.0); MEAN CORPUSCULAR HEMOGLOBIN 32.7 pg (27.0-33.0); MEAN CORPUSCULAR HGB CONC 34.3 g/dl (32.0-36.5); MEAN CORPUSCULAR VOLUME 95.5 fl (80.0-96.0); MONO # 0.5 10^3/uL (0.0-0.8); MONO % 5.9 % (0.0-5.0); NEUTROPHILS # 5.5 10^3/uL (1.5-8.5); NEUTROPHILS % 61.7 % (36.0-66.0); PLATELET COUNT, AUTOMATED 232 10^3/uL (150-450); RED BLOOD COUNT 4.46 10^6/uL (4.00-5.40)
[2019-08-24 14:03] LABS: TOTAL 25(OH) VITAMIN D 71.4 NG/ML (30.0-100.0)
[2019-08-24 14:22] LABS: ALBUMIN 4.3 GM/DL (3.2-5.2); ALT/SGPT 20 U/L (12-78); BILIRUBIN,TOTAL 1.1 MG/DL (0.2-1.0); BLOOD UREA NITROGEN 13 MG/DL (7-18); CALCIUM LEVEL 9.5 MG/DL (8.8-10.2); CARBON DIOXIDE LEVEL 29 MEQ/L (21-32); CHLORIDE LEVEL 105 MEQ/L (98-107); CREATININE FOR GFR 0.84 MG/DL (0.55-1.30); GLOMERULAR FILTRATION RATE > 60.0 (>45); GLUCOSE, FASTING 121 MG/DL (70-100); POTASSIUM SERUM 4.3 MEQ/L (3.5-5.1); SODIUM LEVEL 141 MEQ/L (136-145); TOTAL PROTEIN 7.1 GM/DL (6.4-8.2)
== END ==
LOC: M LABDRWAD 12:39
PROVIDERS: ATTEND Physician Assistant
DX: E55.9 Vitamin D deficiency, unspecified (principal); E11.65 Type 2 diabetes mellitus with hyperglycemia; E78.2 Mixed hyperlipidemia; I10 Essential (primary) hypertension; Z79.899 Other long term (current) drug therapy

== ENCOUNTER → 2019-08-24 | Outpatient (REF) | payer MEDICARE ==
[2019-08-24 15:45] LABS: BLOOD UREA NITROGEN 13 MG/DL (7-18); GLUCOSE, FASTING 121 MG/DL (70-100)
[2019-08-24 15:46] LABS: CALCIUM LEVEL 9.5 MG/DL (8.8-10.2); CARBON DIOXIDE LEVEL 29 MEQ/L (21-32); CHLORIDE LEVEL 105 MEQ/L (98-107); CREATININE FOR GFR 0.84 MG/DL (0.55-1.30); GLOMERULAR FILTRATION RATE > 60.0 (>45); POTASSIUM SERUM 4.3 MEQ/L (3.5-5.1); SODIUM LEVEL 141 MEQ/L (136-145)
== END ==
LOC: M LABDRWAD 12:36
PROVIDERS: ATTEND Nurse Practitioner Family
DX: E11.65 Type 2 diabetes mellitus with hyperglycemia (principal)

== ENCOUNTER → 2020-06-06 | Outpatient (REF) | payer MEDICARE ==
[~2020-06-06] MED LIST changes: +AMLO1TAB24 PO; -AMLO5TAB6 PO
[2020-06-06 12:19] LABS: BASO % 0.5 % (0.0-1.0); EOS # 0.5 10^3/uL (0.0-0.5); EOS % 6.3 % (0.0-3.0); HEMATOCRIT 44.7 % (36.0-47.0); HEMOGLOBIN 14.8 g/dl (12.0-15.5); LYMPH # 2.4 10^3/uL (1.5-5.0); LYMPH % 29.8 % (24.0-44.0); MEAN CORPUSCULAR HEMOGLOBIN 33.5 pg (27.0-33.0); MEAN CORPUSCULAR HGB CONC 33.1 g/dl (32.0-36.5); MEAN CORPUSCULAR VOLUME 101.1 fl (80.0-96.0); MONO # 0.6 10^3/uL (0.0-0.8); MONO % 7.2 % (0.0-5.0); NEUTROPHILS # 4.4 10^3/uL (1.5-8.5); NEUTROPHILS % 55.8 % (36.0-66.0); PLATELET COUNT, AUTOMATED 210 10^3/uL (150-450); RED BLOOD COUNT 4.42 10^6/uL (4.00-5.40); WHITE BLOOD COUNT 7.9 10^3/uL (4.0-10.0)
[2020-06-06 12:54] LABS: ALT/SGPT 24 U/L (12-78); BILIRUBIN,TOTAL 1.2 MG/DL (0.2-1.0); BLOOD UREA NITROGEN 11 MG/DL (7-18); CALCIUM LEVEL 9.2 MG/DL (8.8-10.2); CARBON DIOXIDE LEVEL 29 MEQ/L (21-32); CHLORIDE LEVEL 106 MEQ/L (98-107); CHOLESTEROL LEVEL 199 MG/DL (<200); CHOLESTEROL RISK RATIO 2.884 (<5); GLOMERULAR FILTRATION RATE > 60.0 (>39); GLUCOSE, FASTING 127 MG/DL (70-100); HDL CHOLESTEROL 69 MG/DL (>40); LDL CHOLESTEROL 103 MG/DL (<100); NON-HDL-C 130 MG/DL; POTASSIUM SERUM 4.5 MEQ/L (3.5-5.1); SODIUM LEVEL 140 MEQ/L (136-145); TOTAL PROTEIN 7.1 GM/DL (6.4-8.2); TRIGLYCERIDES LEVEL 135 MG/DL (<150)
== END ==
LOC: M LAB REF 11:15
PROVIDERS: ATTEND Physician Assistant
DX: E78.5 Hyperlipidemia, unspecified (principal); I10 Essential (primary) hypertension; J45.40 Moderate persistent asthma, uncomplicated; E55.9 Vitamin D deficiency, unspecified; Z79.899 Other long term (current) drug therapy

== ENCOUNTER → 2020-08-30 | Outpatient (CLI) | payer MEDICARE ==
[~2020-08-30] MED LIST changes: +HYDR-3490 PO; -HYDR25TAB PO
--- NOTE | 2020-08-30 11:35 | REP ---
INDICATION: ABN FINDINGS OF LUNG FIELD COMPARISON: None TECHNIQUE: Axial noncontrast images from the thoracic inlet to the upper abdomen with coronal and sagittal reformations. This CT examination was performed using the following dose reduction techniques: Automated exposure control, adjustment of mA and/or kv according to the patient's size, and use of iterative reconstruction technique. FINDINGS: Lung rangel demonstrate chronic stable changes including biapical and scattered scarring, emphysematous changes, and very subtle small areas of ground-glass opacity and primarily non solid nodules. No acute consolidation, new suspicious nodule or mass lesion. No pleural effusion. No pneumothorax. Tracheobronchial tree is patent. Nonspecific mediastinal lymph nodes are unchanged. Further evaluation demonstrates stable atherosclerotic changes to the thoracic aorta and coronary arteries without aortic aneurysm or cardiomegaly. No pericardial effusion. Surrounding musculoskeletal structures demonstrate age-related changes without acute osseous abnormality. IMPRESSION: Stable chronic changes. No acute mediastinal or pleuroparenchymal process. <Electronically signed by Anjel Platt > 08/30/20 [id number]
== END ==
LOC: M RAD 10:37
PROVIDERS: ATTEND Physician Assistant
DX: R91.8 Other nonspecific abnormal finding of lung field (principal)

== ENCOUNTER → 2020-10-05 | Outpatient (REF) | payer MEDICARE ==
[2020-10-05 20:46] LABS: CREATININE, URINE 59.4 MG/DL; MALB URINE SIEMENS < 5.0 MG/L; MAU/CREAT RATIO 8.4 MCG/MG (0.0-30.0)
== END ==
LOC: M LAB REF 15:34
PROVIDERS: ATTEND Nurse Practitioner Family
DX: E11.65 Type 2 diabetes mellitus with hyperglycemia (principal)

== ENCOUNTER → 2020-12-28 | Outpatient (CLI) | payer MEDICARE ==
[~2020-12-28] MED LIST changes: +AMLO1TAB25 PO; +BREO1INH3 INH; +ERGO500029 PO; +JARD1TAB PO; +LOSA100T45 PO; -LOSA100T50 PO; +PROAAER10 INH; +ROXI1TAB2 PO
== END ==
LOC: M WHC 13:49
PROVIDERS: ATTEND Physician Assistant
DX: Z12.31 Encounter for screening mammogram for malignant neoplasm of breast (principal); N63.15 Unspecified lump in the right breast, overlapping quadrants

== ENCOUNTER → 2021-01-10 | Outpatient (CLI) | payer MEDICARE ==
[~2021-01-10] MED LIST changes: -AMLO1TAB25 PO; -LOSA100T45 PO; +LOSA100T50 PO; -PROAAER10 INH; -ROXI1TAB2 PO
== END ==
LOC: M LABSMTC 12:06
PROVIDERS: ATTEND Anesthesiology
DX: Z20.828 Contact with and (suspected) exposure to other viral communicable diseases (principal); Z11.59 Encounter for screening for other viral diseases

== ENCOUNTER → 2021-01-11 | Outpatient (CLI) | payer MEDICARE ==
--- NOTE | 2021-01-11 14:37 | REP ---
INDICATION: ADDITIONAL VIEWS RT BREAST. COMPARISON: Comparison mammography is screening exam 28 December 2020 showing a possible yuliet density on the craniocaudal view. Comparison is also made with July 03, 2015 and November 05, 2013 prior mammograms. TECHNIQUE: Magnified focal spot-compression CC, mL, and MLO views of the right breast are obtained. Targeted right breast sonography is carried out as well. This mammogram was interpreted with the aid of an FDA-approved computer-aided detection system. FINDINGS: Magnified focal spot-compression CC, MLO, and mL views confirm the presence of a relatively low-density 6 mm nodule in the upper outer quadrant. Scattered fibroglandular elements are seen. No other abnormality. No spiculation or microcalcification is observed. The Volpara volumetric breast density pattern is B.. Targeted ultrasound: Targeted right breast sonography is performed from 9:00 to 12:00 in the upper outer quadrant. There is slightly prominent retroareolar ducts at 9 o'clock. Also noted at 9 o'clock is a 7 x 5 x 5 mm hypoechoic lesion 2.8 cm from the nipple. There is some enhanced through transmission but there are internal echoes. This does not meet characteristics of a simple cyst. It has a low K PA number on elastography. IMPRESSION: BIRADS/ACR category 4 suspicious right breast mammographic and sonographic findings. This patient's Tyrer-Cuzick lifetime breast cancer risk assessment score is 2.9%. RECOMMENDATION: Ultrasound-guided needle biopsy hypoechoic nodule right breast with marker clip placement and post clip placement right breast mammography recommended.. The patient letter being requested is M4. <Electronically signed by Yaron Mondragon > 01/11/21 [id number]
== END ==
LOC: M WHC 12:31
PROVIDERS: ATTEND Physician Assistant
DX: N63.11 Unspecified lump in the right breast, upper outer quadrant (principal)

== ENCOUNTER 2021-01-15 07:33 | Day surgery (SDC) | payer MEDICARE ==
[~2021-01-15] VITALS: Ht 162.6 cm; Wt 71.7 kg
[~2021-01-15 07:33] MED LIST changes: +CYCLOPENTOLATE 1% OPHTH SOLN 2 ML BTL OD ONE; +FLURBIPROFEN 0.03% OPHTH SOLN 2.5 ML OD ONE; +LIDOCAINE 1% SDV 5ML VIAL As Ordered ONE; +LOSA100T45 PO; -LOSA100T50 PO; +LR 1,000 ML IV SCH; +PHENYLEPHRINE 2.5% OPHTH SOL 2ML OD ONE; +TETRACAINE 0.5% OPHTH SOLN 4ML OD ONE
[2021-01-15] MEDS ORDERED: BALANCED SALT IRRIGATION SOLUTION 500ML BAG (FOR OR EYE MACHINE) As Ordered ONE (07:38)
[2021-01-15] MEDS ORDERED: MIDAZOLAM INJ 2MG/2ML VIAL (J2250 PER 1MG) As Ordered ONE (11:34)
[2021-01-15] MEDS ORDERED: fentaNYL 100 MCG/2 ML INJECTION As Ordered ONE (11:34)
[2021-01-15 11:58] VITALS: BP 148/69
[2021-03-28] MEDS ORDERED: AMLO1TAB25 PO (10:52)
[2021-05-01] MEDS ORDERED: PROAAER10 INH (09:19)
== END 2021-01-15 12:19 | disposition home or self-care (01) ==
LOC: M SDC 07:33
PROVIDERS: ATTEND Ophthalmology
DX: H25.811 Combined forms of age-related cataract, right eye (principal); I10 Essential (primary) hypertension; E78.5 Hyperlipidemia, unspecified; E11.9 Type 2 diabetes mellitus without complications; K76.0 Fatty (change of) liver, not elsewhere classified; M81.0 Age-related osteoporosis without current pathological fracture; Z79.899 Other long term (current) drug therapy; Z79.84 Long term (current) use of oral hypoglycemic drugs; R91.1 Solitary pulmonary nodule
CPT/HCPCS: 66984; J2250; J3010; V2632

== ENCOUNTER → 2021-01-26 | Outpatient (CLI) | payer MEDICARE ==
[~2021-01-26] MED LIST changes: -CYCLOPENTOLATE 1% OPHTH SOLN 2 ML BTL OD ONE; -FLURBIPROFEN 0.03% OPHTH SOLN 2.5 ML OD ONE; -LIDOCAINE 1% SDV 5ML VIAL As Ordered ONE; -LOSA100T45 PO; +LOSA100T50 PO; -LR 1,000 ML IV SCH; -PHENYLEPHRINE 2.5% OPHTH SOL 2ML OD ONE; -TETRACAINE 0.5% OPHTH SOLN 4ML OD ONE
[2021-01-26 14:20] LABS: BLOOD UREA NITROGEN 11 MG/DL (7-18); CALCIUM LEVEL 9.1 MG/DL (8.8-10.2); CARBON DIOXIDE LEVEL 29 MEQ/L (21-32); CHLORIDE LEVEL 105 MEQ/L (98-107); GLOMERULAR FILTRATION RATE > 60.0 (>39); GLUCOSE, FASTING 144 MG/DL (70-100); POTASSIUM SERUM 4.4 MEQ/L (3.5-5.1); SODIUM LEVEL 140 MEQ/L (136-145)
== END ==
LOC: M PLALAB 08:41
PROVIDERS: ATTEND Surgery
DX: N64.59 Other signs and symptoms in breast (principal)

== ENCOUNTER → 2021-02-07 | Outpatient (CLI) | payer MEDICARE | LOC: M LABSMTC 09:32 | PROVIDERS: ATTEND Anesthesiology | DX: Z01.818 Encounter for other preprocedural examination (principal); Z11.52 Encounter for screening for COVID-19 ==

== ENCOUNTER 2021-02-12 08:59 | Day surgery (SDC) | payer MEDICARE ==
[~2021-02-12] VITALS: Ht 162.6 cm; Wt 69.8 kg
[~2021-02-12 08:59] MED LIST changes: +LIDOCAINE 1% SDV 5ML VIAL As Ordered ONE; +LR 1,000 ML IV SCH
[2021-02-12] MEDS ORDERED: fentaNYL 100 MCG/2 ML INJECTION (J3010) As Ordered ONE (11:39)
[2021-02-12] MEDS ORDERED: MIDAZOLAM INJ 2MG/2ML VIAL (J2250 PER 1MG) As Ordered ONE (11:39)
[2021-02-12] MEDS: TETRACAINE 0.5% OPHTH SOLN 4ML OS SCH ×2 (12:13→12:19)
[2021-02-12] MEDS: FLURBIPROFEN 0.03% OPHTH SOLN 2.5 ML OS SCH ×3 (12:20→12:39)
[2021-02-12] MEDS: PHENYLEPHRINE 2.5% OPHTH SOL 2ML OS SCH ×3 (12:20→12:39)
[2021-02-12] MEDS: CYCLOPENTOLATE 1% OPHTH SOLN 2 ML BTL OS SCH ×3 (12:20→12:39)
[2021-02-12] MEDS ORDERED: DUOVISC (0.50ML VISCOAT/0.85ML PROVISC) OPHTH KIT As Ordered ONE (12:57)
[2021-02-12 14:00] VITALS: BP 155/88
== END 2021-02-12 14:15 | disposition home or self-care (01) ==
LOC: M SDC 08:59
PROVIDERS: ATTEND Ophthalmology
DX: H25.12 Age-related nuclear cataract, left eye (principal); I10 Essential (primary) hypertension; E11.9 Type 2 diabetes mellitus without complications; E78.5 Hyperlipidemia, unspecified; K76.0 Fatty (change of) liver, not elsewhere classified; M17.0 Bilateral primary osteoarthritis of knee; J45.909 Unspecified asthma, uncomplicated; R91.1 Solitary pulmonary nodule; Z79.899 Other long term (current) drug therapy; Z79.84 Long term (current) use of oral hypoglycemic drugs; Z79.51 Long term (current) use of inhaled steroids
CPT/HCPCS: 66984; J2250; J3010; V2632

== ENCOUNTER → 2021-02-14 | Outpatient (CLI) | payer MEDICARE ==
[~2021-02-14] MED LIST changes: -LIDOCAINE 1% SDV 5ML VIAL As Ordered ONE; -LR 1,000 ML IV SCH; +PROHANCE 279.3MG/ML 15ML VIAL As Ordered ONE
--- NOTE | 2021-02-15 08:42 | REP ---
INDICATION: INVERSION OF RT NIPPLE. BI-RADS category 4 conventional breast imaging. COMPARISON: Comparison mammography December 28, 2020 and January 11, 2021. Comparison sonography January 11, 2021. TECHNIQUE: Three Valerie MRI imaging was performed with a dedicated breast coil. Axial, coronal, and sagittal T1 and T2 weighted scans were obtained with and without fat saturation in the usual fashion. The study includes dynamically acquired post gadolinium-enhanced imaging with image subtraction. Maximum intensity projection and multi planar reformation imaging is included as well. This study is interpreted with the aid of Material Mix, an FDA approved computer aided detection (CAD) software program, on a dedicated breast MRI workstation. The gadolinium enhancement dose is 13 mL of intravenous ProHance. FINDINGS: There is a moderate amount of fibroglandular tissue bilaterally corresponding with the mammographic pattern. There is moderate multifocal bilateral background parenchymal enhancement. There is no evidence of axillary lymphadenopathy. There are multiple sub cm foci of T2 hyperintensity in each breast in a symmetrical benign pattern.. The nipples appear bilaterally and symmetrically inverted in there is normal appearing symmetric nipple enhancement bilaterally. T1 and T2 weighted images demonstrate an oval-shaped T2 hyperintense nodule in the right lateral breast at approximately the 9 o'clock position. This may correspond with the sonographic finding. However, it does not demonstrate significant enhancement or spiculation. High-resolution pre and post-contrast T1 and T2 weighted scans show no suspicious morphologic abnormality in either breast. Dynamically acquired sequential postcontrast images show no suspicious area of enhancement and washout kinetics in either breast to suggest malignancy. Subtraction images show no additional abnormality. IMPRESSION: Conventional of the right breast, mammography and ultrasound, was BI-RADS 4. No additional suspicious target seen by MRI. Bilateral symmetric nipple inversion. Ultrasound-guided needle biopsy as previously recommended. <Electronically signed by Yaron Mondragon > 02/15/21 0840
== END ==
LOC: M RAD 14:56
PROVIDERS: ATTEND Surgery
DX: N64.59 Other signs and symptoms in breast (principal)
CPT/HCPCS: A9576; C8908

== ENCOUNTER → 2021-02-22 | Outpatient (CLI) | payer MEDICARE ==
[~2021-02-22] MED LIST changes: -PROHANCE 279.3MG/ML 15ML VIAL As Ordered ONE
[2021-02-22 16:05] VITALS: BP 146/78
--- NOTE | 2021-02-23 08:00 | REP ---
INDICATION: ABN RIGHT BREAST MAMMO/STEREO BX/CK CLIP PLACEMENT. COMPARISON: Comparison mammography December 28, 2020 July 03, 2015, and January 11, 2021. Comparison sonography and MR imaging January 11, 2021 and February 14, 2021. TECHNIQUE: Mediolateral and craniocaudal views of the right breast are obtained post ultrasound-guided needle biopsy and clip placement. This mammogram was interpreted with the aid of an FDA-approved computer-aided detection system. FINDINGS: On the craniocaudal view, the marker clip is seen in good position relative to the nodular opacity seen on the CC view from December 28, 2020 and January 11, 2021. The clip is noted at the 9 o'clock position where the ultrasound target is visualized, and on the mediolateral image, the clip is inferior to the level of the nodule. I do not believe the ultrasound nodule and the mammographic nodule correspond to one another. I note that no additional target was seen on MRI scanning. The Volpara volumetric breast density pattern is b. IMPRESSION: Post clip placement mammography demonstrates that the sonographic nodule at 9 o'clock does not correspond to the mammographically visible nodule in the upper outer quadrant. Given that an MRI study was performed and no additional abnormality is observed in the right breast, I would recommend six-month follow-up right breast mammogram. This patient's Tyrer-Cuzick lifetime breast cancer risk assessment score is 2.7%. RECOMMENDATION: Six-month follow-up right breast mammography suggested. BI-RADS category 3 probably benign. <Electronically signed by Yaron Mondragon > 02/23/21 0755
--- NOTE | 2021-02-23 16:43 | REP ---
INDICATION: R92.8 ABN R BREAST/STEREO BX. COMPARISON: None. TECHNIQUE: The procedure was performed under the direct supervision of Dr. Mondragon. The patient has a history of a 7 x 5 x 5 mm hypoechoic lesion in the 9 o'clock position of the right breast seen on a previous ultrasound dated 01/11/2021. The risks and benefits of the procedure were explained to the patient and informed consent was obtained. The right breast nodule was localized using ultrasound guidance. The skin was prepped and draped in a sterile fashion. Nine 1% Xylocaine was used as a local anesthetic. Using ultrasound guidance a 14-gauge coaxial needle biopsy system was inserted and6 core biopsy samples were obtained. A marker clip (HydroMARK shape 3) was placed at the biopsy site The patient tolerated the procedure well and there were no immediate complications. After the appropriate amount of monitored convalescence, the patient was discharged from the department. EBL: Less than 3 mL FINDINGS: None IMPRESSION: Ultrasound-guided right breast biopsy with marker clip placement (HydroMARK shape 3) <Electronically signed by Clint Marquez > 02/23/21 1511 <Electronically signed by Yaron Mondragon > 02/23/21 [id number]
== END ==
LOC: M WHCPRO 07:05
PROVIDERS: ATTEND Surgery
DX: N63.12 Unspecified lump in the right breast, upper inner quadrant (principal); R92.8 Other abnormal and inconclusive findings on diagnostic imaging of breast

== ENCOUNTER → 2021-03-14 | Outpatient (CLI) | payer MEDICARE ==
[2021-03-14 09:10] VITALS: BP 150/84
== END ==
LOC: M WHCPRO 06:44
PROVIDERS: ATTEND Surgery
DX: R92.8 Other abnormal and inconclusive findings on diagnostic imaging of breast (principal); Z53.8 Procedure and treatment not carried out for other reasons

== ENCOUNTER → 2021-03-28 | Outpatient (CLI) | payer MEDICARE ==
[~2021-03-28] MED LIST changes: +AMLO1TAB25 PO
[2021-03-28 12:04] VITALS: BP 158/82
--- NOTE | 2021-03-29 16:09 | ROOPDOC ---
[facility] Report Of Operation Report of Operation DATE OF PROCEDURE: 03/28/21 DIAGNOSIS: Right breast suspicious mass with single calcification PROCEDURE: Right breast stereotactic biopsy with clip placement SURGEON: Linden Mendez BLOOD LOSS: minimal Lidocaine 1% LOT [id number] Expiration 09/2023 Sodium Bicarbonate 8.4% LOT [id number] Expiration 07/2021 Hydromark clip LOT [id number] Expiration 07/2023 SHAPE : 1 Bx device: Stereotactic Mammotome Revolve Dual Vacuum- assisted Biopsy System 10 G LOT [id number] Expiration 11/2023 REF [id number] Informed consent was obtained in the preop area. The most common risk and possible complications including bleeding, hematoma, bruising, infection, injury to surrounding structures were explained to the patient and patient expressed understanding. Patient was taken to the procedure room and placed prone on the [employer] [facility] Breast Biopsy table with the right breast hanging through the table opening. Right breast was placed into Cranio-Caudal compression and Acetylene Gas Compressor madai images were taken. Suspicious mass with single calcification was identified on t he madai images and target was set. CC approach from the bottom was chosen for this procedure. At this time, since we were able to confirm visibility of the suspicious mass with single calcification and patient tolerated prone positioning allowing to proceed with the biopsy, appropriate time out was done stating patients name, date of , and the procedure to be performed. The right breast in CC compression was prepped in the usual fashion. Plain Lidocaine 1% and 8.4% sodium bicarbonate 10:1 mix was used to anesthetize the skin, the biopsy site and tissues along the anticipated biopsy tract. Small skin incision was made with blade number 11. Mammotome 10 G stereotactic breast biopsy device was inserted through the incision and advanced to the previ ously set coordinates marking the target lesion. Pre-fire imaging was taken to assure appropriate positioning. At this time, Mammotome 10 G breast biopsy device was fired and vacuum assisted biopsies were collected. The biopsy samples were investigated with [employer] system and the nodule with single calcification was observed. Biopsy [facility], marked with patients name and right breast biopsy site, and sent to pathology for evaluation. SHAPE 1 Hydromark clip was placed into the Mammotome biopsy device channel and deployed. Post-deployment imaging was done to assure appropriate clip dep loyment. Clip was noted in the right breast. At this point, paddle CC compression of the right breast was released and manual pressure was held to decrease harmonic effect and to assure hemostasis. No bleeding was noted upon removal of the pressure. Patient was slowly repositioned and placed into sitting position, and then assisted off the table. Post-biopsy mammogram of the right breast was obtained and showed clip in expected position. Postprocedural dressing was placed. Patient tolerated procedure well and was taken to the recovery unit in stable condition. Discharge instructions were discussed with the patient and patient expressed understanding. LINDEN MENDEZ DO Mar 29, 2021 16:09
== END ==
LOC: M WHCPRO 07:50
PROVIDERS: ATTEND Surgery
DX: D24.1 Benign neoplasm of right breast (principal)

== ENCOUNTER → 2021-03-30 | Outpatient (CLI) | payer MEDICARE ==
[2021-03-30 16:29] LABS: BASO % 0.4 % (0.0-1.0); EOS # 0.3 10^3/uL (0.0-0.5); EOS % 2.7 % (0.0-3.0); HEMOGLOBIN 14.9 g/dl (12.0-15.5); LYMPH # 2.7 10^3/uL (1.5-5.0); LYMPH % 27.4 % (24.0-44.0); MEAN CORPUSCULAR HEMOGLOBIN 34.1 pg (27.0-33.0); MEAN CORPUSCULAR HGB CONC 33.9 g/dl (32.0-36.5); MEAN CORPUSCULAR VOLUME 100.7 fl (80.0-96.0); MONO # 0.7 10^3/uL (0.0-0.8); MONO % 6.9 % (2.0-8.0); NEUTROPHILS # 6.1 10^3/uL (1.5-8.5); NEUTROPHILS % 62.1 % (36.0-66.0); PLATELET COUNT, AUTOMATED 259 10^3/uL (150-450); RED BLOOD COUNT 4.37 10^6/uL (4.00-5.40); WHITE BLOOD COUNT 9.8 10^3/uL (4.0-10.0)
[2021-03-30 16:43] LABS: ALBUMIN 4.2 GM/DL (3.2-5.2); ALT/SGPT 31 U/L (12-78); BLOOD UREA NITROGEN 12 MG/DL (7-18); CALCIUM LEVEL 9.7 MG/DL (8.8-10.2); CARBON DIOXIDE LEVEL 28 MEQ/L (21-32); CHLORIDE LEVEL 106 MEQ/L (98-107); CHOLESTEROL LEVEL 154 MG/DL (<200); CHOLESTEROL RISK RATIO 2.444 (<5); CREATININE FOR GFR 0.78 MG/DL (0.55-1.30); GLOMERULAR FILTRATION RATE > 60.0 (>39); GLUCOSE, FASTING 109 MG/DL (70-100); HDL CHOLESTEROL 63 MG/DL (>40); LDL CHOLESTEROL 58 MG/DL (<100); NON-HDL-C 91 MG/DL; POTASSIUM SERUM 4.3 MEQ/L (3.5-5.1); SODIUM LEVEL 141 MEQ/L (136-145); TOTAL PROTEIN 7.3 GM/DL (6.4-8.2); TRIGLYCERIDES LEVEL 166 MG/DL (<150)
[2021-03-30 16:44] LABS: CREATININE, URINE 33.1 MG/DL; MALB URINE SIEMENS < 5.0 MG/L; MAU/CREAT RATIO 15.1 MCG/MG (0.0-30.0)
[2021-03-30 19:29] LABS: HEMOGLOBIN A1c 6.8 %
== END ==
LOC: M LAB 14:44
PROVIDERS: ATTEND Physician Assistant
DX: I10 Essential (primary) hypertension (principal); E11.9 Type 2 diabetes mellitus without complications

== ENCOUNTER → 2021-04-26 | Outpatient (CLI) | payer MEDICARE ==
--- NOTE | 2021-04-26 11:27 | REP ---
INDICATION: PRE OP TESTING. COMPARISON: 08/26/2006 the only prior TECHNIQUE: PA and lateral FINDINGS: The cardiomediastinal silhouette is within normal limits. Mild fibrotic changes are again seen in the lung apical regions increased from the prior exam. The pleural angles are sharp. No definite acute patchy parenchymal opacities have developed. There is no change in the osseous structures. IMPRESSION: Chronic changes as described above. <Electronically signed by Manuel Mann > 04/26/21 [id number]
== END ==
LOC: M WUC 10:36
PROVIDERS: ATTEND Nurse Practitioner Family
DX: Z01.818 Encounter for other preprocedural examination (principal); Z76.89 Persons encountering health services in other specified circumstances

== ENCOUNTER → 2021-04-28 | Outpatient (CLI) | payer MEDICARE ==
[~2021-04-28] MED LIST changes: +PROAAER10 INH
== END ==
LOC: M LABSMTC 10:59
PROVIDERS: ATTEND Anesthesiology
DX: Z01.812 Encounter for preprocedural laboratory examination (principal); Z20.822 Contact with and (suspected) exposure to COVID-19

== ENCOUNTER 2021-05-03 06:20 | Day surgery (SDC) | payer MEDICARE ==
[~2021-05-03] VITALS: Ht 162.6 cm; Wt 72.5 kg
[~2021-05-03 06:20] MED LIST changes: +HEPARIN SOD (PORCINE) 5000UNITS/ML 1ML VIAL/SYRINGE SQ ONE; +LIDOCAINE 1% MDV 20ML VIAL SQ PRN; +LR 1,000 ML IV ONE; +ceFAZolin SOD 2 GM in IV 1 EA IV ONE
[2021-05-03] MEDS ORDERED: BUPIVACAINE HCL 0.25% 30ML VIAL As Ordered ONE (07:15)
[2021-05-03] MEDS ORDERED: LIDOCAINE 1% SDV 30ML VIAL As Ordered ONE (07:15)
[2021-05-03] MEDS ORDERED: propofoL 200 MG/20 ML VIAL As Ordered ONE (07:21)
[2021-05-03] MEDS ORDERED: dexameTHASONE 4 MG/ML 1ML VIAL (J1100 PER 1MG) As Ordered ONE (07:21)
[2021-05-03] MEDS ORDERED: fentaNYL 250 MCG/5 ML INJECTION (J3010) As Ordered ONE (07:21)
[2021-05-03] MEDS ORDERED: MIDAZOLAM INJ 2MG/2ML VIAL (J2250 PER 1MG) As Ordered ONE (07:21)
[2021-05-03] MEDS ORDERED: ONDANSETRON 4MG/2ML VIAL As Ordered ONE (07:21)
[2021-05-03] MEDS ORDERED: LIDOCAINE 2% 100MG/5ML SDV (FOR ANES.) As Ordered ONE (07:21)
[2021-05-03] MEDS ORDERED: ROCURONIUM BROMIDE 50 MG/5 ML VIAL As Ordered ONE (07:21)
[2021-05-03] MEDS ORDERED: ePHEDrine SULFATE 25 MG/5 ML(5MG/ML) SYRINGE As Ordered ONE (08:36)
[2021-05-03] MEDS ORDERED: SUGAMMADEX SODIUM 500 MG/5 ML VIAL (BRIDION) As Ordered ONE (08:50)
[2021-05-03] MEDS ORDERED: ACETAMINOPHEN 1000MG 100ML IV BTL (OFIRMEV) (J0131 PER 10MG) As Ordered ONE (08:50)
[2021-05-03] MEDS ORDERED: LACRILUBE (AKWA TEARS) OPHTH OINT 3.5 GM As Ordered ONE (08:50)
[2021-05-03] MEDS ORDERED: KETOROLAC 60MG 2ML VIAL As Ordered ONE (08:50)
[2021-05-03] MEDS ORDERED: LABETALOL 100MG/20ML VIAL As Ordered ONE (09:13)
[2021-05-03] MEDS ORDERED: ROXI1TAB2 PO (09:20)
[2021-05-03] MEDS ORDERED: ONDANSETRON 4MG/2ML VIAL IV PRN (10:00)
[2021-05-03] MEDS ORDERED: oxyCODONE 5MG TAB PO PRN (10:00)
[2021-05-03] MEDS ORDERED: fentaNYL 100 MCG/2 ML INJECTION (J3010) IV PRN (10:00)
[2021-05-03] MEDS ORDERED: HYDROMORPHONE HCL 0.5 MG/ 0.5 ML SYRINGE (J1170 PER 1) IV PRN (10:00)
[2021-05-03] MEDS ORDERED: LR 1,000 ML IV SCH (10:00)
[2021-05-03 11:00] VITALS: BP 143/65
--- NOTE | 2021-05-05 16:38 | ROOPDOC ---
[facility] Report Of Operation Report of Operation DATE OF PROCEDURE: 05/03/21 PREPROCEDURE DIAGNOSES: Right breast atypical papillary proliferation POSTPROCEDURE DIAGNOSES: Right breast atypical papillary proliferation PROCEDURE PERFORMED: Right breast excisional biopsy with intraop wire SURGEON: Dr González Mendez ANESTHESIA: general ESTIMATED BLOOD LOSS: Approximately 25 mL. COMPLICATIONS: none FINDINGS: clip and hydromark clip #3 identified in specimen PROCEDURE NOTE: INDICATIONS: Ms. Aishwarya Duke is a 71-year-old woman who was found to have a suspicious lesion on screening mammogram. This was evaluated with US and potential sonographic correlate was found. US guided biopsy of potential sonographic c orrelate was done and pathology came back as atypical papillary proliferation and mucin-like cystic dilation. Of note, the clip and the lesion did not correspond with mammographic lesion. The mammographic lesion was later evaluated with another biopsy. Excisional biopsy of the atypical papillary proliferation was offered to the patient and she wished to proceed. Patient was medically cleared for surgery by the primary care doctor. Risks and possible complications of surgical procedure including bleeding, infection and injury to surrounding structures were explained to the patient and she wished to proceed. Consent was signed. My initials were placed on the operative site. Subcutaneous injection of 5000 units of heparin was done in Preop. DETAILS: Patient was taken to the operating room and placed on the operating room table. A sign in was called stating patients name, date of and the procedure to be done. Preoperative antibiotics were infused. Smooth induction of general anesthesia was done. Patients hands were extended on arm rests. Care was taken not to over extend the arms. Pillow was placed under the knees and a foam was placed under the heels. Sequential compression devices were placed and assured to function correctly. Procedure was started with right breast intraop wire localization. Appropriate time out was done and patients name, date of , and the procedure to be done were confirmed. Right breast was cleaned by me. Intraoperative ultrasound was used to confirm location of the Hydromark clip. Location of the clip was marked on the skin as well. 21 G [employer] Breast Lesion Localization Needle was used to place 25 cm wire next to the clip and the lesion. The end of the wire was passed slightly distal to the clip. The images were captured confirming adequate placement of the localizing wire. Mud Plant Operator assisted with the wire placement. Next, patients right breast and axilla were prepped and draped in the usual fashion. Care was taken not to displace the wire. Appropriate time out was done again prior second part of the procedure. Patients name, date of , and the procedure to be done were confirmed. Next, local anesthetic using 1% lidocaine and 0.25 % Marcaine 50/50 mix was injected at the site of planned periareolar incision. The incision was made with the scalpel. Subcutaneous skin flaps were raised and the guide wire was carefully pulled into the wound. Dissection was carries along the wire until the previously marked on the skin area of target lesion location was encountered. At this point, wider excision of the tissue surrounding the wire was done. The Hydromark clip was identified in the tissue with intraoperative hockey stick ultrasound probe. The end of the wire was identified with palpation. The excisional biopsy specimen was carefully removed from the breast keeping its proper orientation and moved to the back table where margins were marked with the surgical inking kit following the standard colors recommendations. Specimen measured 5x3 cm. Specimen was then placed on the grid and placed in [employer] [employer] [facility]. The image revealed the wire and the Hydromark #3 in the specimen. The specimen was labeled with patients name and right excisional biopsy and sent to pathology. Next, the wound was irrigated thoroughly and adequate hemostasis was assured. Additional local anesthetic was injected into surrounding tissues. space was approximated with 2-0 Vicryl. The dermis was closed with 3-0 Vicryl and skin was closed with 4-0 Monocryl. Surgical glue was placed over the incision. Patient emerged from the anesthesia without any problems. Fluffs were placed over the operative site and patients chest was wrapped snuggly in the GERMAN wrap. Sponge and instrument counts were done and were correct. Patient tolerated procedure well and was taken to recovery unit in stable condition. LINDEN MENDEZ DO May 05, 2021 16:38
== END 2021-05-03 11:30 | disposition home or self-care (01) ==
LOC: M SDC 06:20
PROVIDERS: ATTEND Surgery
DX: D24.1 Benign neoplasm of right breast (principal); E11.9 Type 2 diabetes mellitus without complications; I10 Essential (primary) hypertension; Z79.899 Other long term (current) drug therapy
CPT/HCPCS: 19125; 36415; 76942; 86850; 86900; 86901; 88307; J0131; J0690; J1100; J1644; J1885; J2250; J2405; J3010

== ENCOUNTER → 2021-10-12 | Outpatient (CLI) | payer MEDICARE ==
[~2021-10-12] MED LIST changes: -HEPARIN SOD (PORCINE) 5000UNITS/ML 1ML VIAL/SYRINGE SQ ONE; -LIDOCAINE 1% MDV 20ML VIAL SQ PRN; +LOSA100T45 PO; -LOSA100T50 PO; -LR 1,000 ML IV ONE; +ROXI1TAB2 PO; -ceFAZolin SOD 2 GM in IV 1 EA IV ONE
== END ==
LOC: M WHC 10:53
PROVIDERS: ATTEND Surgery
DX: R92.8 Other abnormal and inconclusive findings on diagnostic imaging of breast (principal)
CPT/HCPCS: 77065; G0279

== ENCOUNTER → 2021-11-20 | Outpatient (REF) | payer MEDICARE ==
[2021-11-20 18:03] LABS: HEMOGLOBIN A1c 6.8 %
[2021-11-20 18:08] LABS: ALBUMIN 3.9 GM/DL (3.2-5.2); ALT/SGPT 21 U/L (12-78); BILIRUBIN,TOTAL 1.1 MG/DL (0.2-1.0); BLOOD UREA NITROGEN 14 MG/DL (7-18); CALCIUM LEVEL 9.2 MG/DL (8.8-10.2); CARBON DIOXIDE LEVEL 26 MEQ/L (21-32); CHLORIDE LEVEL 109 MEQ/L (98-107); CREATININE FOR GFR 0.91 MG/DL (0.55-1.30); GLOMERULAR FILTRATION RATE > 60.0 (>39); GLUCOSE, FASTING 129 MG/DL (70-100); POTASSIUM SERUM 4.2 MEQ/L (3.5-5.1); SODIUM LEVEL 140 MEQ/L (136-145); TOTAL PROTEIN 7.3 GM/DL (6.4-8.2)
== END ==
LOC: M LAB REF 17:13
PROVIDERS: ATTEND Nurse Practitioner Family
DX: Z01.818 Encounter for other preprocedural examination (principal); E11.9 Type 2 diabetes mellitus without complications

== ENCOUNTER → 2021-11-29 | Outpatient (REF) | payer MEDICARE | LOC: M LAB REF 16:42 | PROVIDERS: ATTEND Orthopaedic Surgery | DX: M67.432 Ganglion, left wrist (principal) ==

== ENCOUNTER → 2021-12-31 | Outpatient (REF) | payer MEDICARE ==
[2021-12-31 22:11] LABS: MALB URINE SIEMENS < 5.0 MG/L; MAU/CREAT RATIO 7.9 MCG/MG (0.0-30.0)
== END ==
LOC: M LAB REF 17:09
PROVIDERS: ATTEND Nurse Practitioner Family
DX: E11.65 Type 2 diabetes mellitus with hyperglycemia (principal)

== ENCOUNTER → 2022-05-31 | Outpatient (REF) | payer MEDICARE ==
[2022-05-31 14:52] LABS: BASO % 0.5 % (0.0-1.0); EOS # 0.2 10^3/uL (0.0-0.5); EOS % 2.6 % (0.0-3.0); HEMOGLOBIN 14.9 g/dl (12.0-15.5); LYMPH # 1.8 10^3/uL (1.5-5.0); MEAN CORPUSCULAR HEMOGLOBIN 33.1 pg (27.0-33.0); MEAN CORPUSCULAR HGB CONC 33.9 g/dl (32.0-36.5); MEAN CORPUSCULAR VOLUME 97.8 fl (80.0-96.0); MONO # 0.6 10^3/uL (0.0-0.8); NEUTROPHILS # 5.2 10^3/uL (1.5-8.5); NEUTROPHILS % 65.5 % (36.0-66.0); PLATELET COUNT, AUTOMATED 219 10^3/uL (150-450)
[2022-05-31 15:07] LABS: HEMOGLOBIN A1c 6.9 % (4.0-6.0)
[2022-05-31 15:19] LABS: ALBUMIN 4.1 G/DL (3.2-5.2); ALKALINE PHOSPHATASE 123 U/L (46-116); ALT/SGPT 19 U/L (7.0-40); AST/SGOT 14 U/L (<34); BILIRUBIN,TOTAL 1.6 MG/DL (0.3-1.2); BLOOD UREA NITROGEN 16 MG/DL (9-23); CALCIUM LEVEL 9.3 MG/DL (8.3-10.6); CARBON DIOXIDE LEVEL 26 MMOL/L (20-31); CHLORIDE LEVEL 105 MMOL/L (98-107); CHOLESTEROL LEVEL 151 MG/DL (<200); CHOLESTEROL RISK RATIO 2.78 (<5); CREATININE FOR GFR 0.73 MG/DL (0.55-1.30); GLOMERULAR FILTRATION RATE > 60.0 (>39); GLUCOSE, FASTING 150 MG/DL (74-106); HDL CHOLESTEROL 54.3 MG/DL (>40); LDL CHOLESTEROL 71.9 MG/DL (<100); NON-HDL-C 97 MG/DL; POTASSIUM SERUM 4.5 MMOL/L (3.5-5.1); SODIUM LEVEL 140 MMOL/L (136-145); TRIGLYCERIDES LEVEL 124 MG/DL (<150)
[2022-05-31 15:21] LABS: THYROID STIMULATING HORMONE 2.307 uIU/ML (0.55-4.78)
== END ==
LOC: M LAB REF 14:21
PROVIDERS: ATTEND Nurse Practitioner Family
DX: Z13.228 Encounter for screening for other metabolic disorders (principal); I10 Essential (primary) hypertension; E78.00 Pure hypercholesterolemia, unspecified; E11.9 Type 2 diabetes mellitus without complications

== ENCOUNTER → 2022-11-26 | Outpatient (REF) | payer OTHER ==
[~2022-11-26] MED LIST changes: -LOSA100T45 PO; +LOSA100T46 PO
[2022-11-26 19:21] LABS: BASO # 0.1 10^3/uL (0.0-0.2); BASO % 0.5 % (0.0-1.0); EOS # 0.3 10^3/uL (0.0-0.5); EOS % 3.6 % (0.0-3.0); HEMATOCRIT 46.6 % (36.0-47.0); HEMOGLOBIN 15.4 g/dl (12.0-15.5); LYMPH # 3.1 10^3/uL (1.5-5.0); LYMPH % 32.5 % (24.0-44.0); MONO # 0.7 10^3/uL (0.0-0.8); MONO % 7.3 % (2.0-8.0); NEUTROPHILS # 5.3 10^3/uL (1.5-8.5); NEUTROPHILS % 55.6 % (36.0-66.0); PLATELET COUNT, AUTOMATED 248 10^3/uL (150-450); RED BLOOD COUNT 4.66 10^6/uL (4.00-5.40); WHITE BLOOD COUNT 9.5 10^3/uL (4.0-10.0)
[2022-11-26 19:47] LABS: THYROID STIMULATING HORMONE 2.062 uIU/ML (0.55-4.78)
[2022-11-26 19:48] LABS: ALBUMIN 4.3 G/DL (3.2-5.2); ALKALINE PHOSPHATASE 144 U/L (46-116); ALT/SGPT 24 U/L (7.0-40); AST/SGOT 15 U/L (<34); BILIRUBIN,TOTAL 1.6 MG/DL (0.3-1.2); BLOOD UREA NITROGEN 14 MG/DL (9-23); CALCIUM LEVEL 9.3 MG/DL (8.3-10.6); CARBON DIOXIDE LEVEL 26 MMOL/L (20-31); CHLORIDE LEVEL 103 MMOL/L (98-107); CHOLESTEROL LEVEL 170 MG/DL (<200); CHOLESTEROL RISK RATIO 2.69 (<5); CREATININE FOR GFR 0.74 MG/DL (0.55-1.30); GLOMERULAR FILTRATION RATE > 60.0 (>39); GLUCOSE, FASTING 135 MG/DL (74-106); HDL CHOLESTEROL 63.1 MG/DL (>40); LDL CHOLESTEROL 64.7 MG/DL (<100); NON-HDL-C 106.9 MG/DL; POTASSIUM SERUM 4.3 MMOL/L (3.5-5.1); SODIUM LEVEL 140 MMOL/L (136-145); TOTAL PROTEIN 7.1 G/DL (5.7-8.2); TRIGLYCERIDES LEVEL 211 MG/DL (<150)
== END ==
LOC: M LAB REF 18:04
PROVIDERS: ATTEND Nurse Practitioner Family
DX: Z13.228 Encounter for screening for other metabolic disorders (principal)

== ENCOUNTER → 2022-12-13 | Outpatient (CLI) | payer OTHER | LOC: M WHC 12:17 | PROVIDERS: ATTEND Nurse Practitioner Family | DX: R07.0 Pain in throat (principal) ==

== ENCOUNTER → 2023-01-21 | Outpatient (REF) | payer OTHER, MEDICARE ==
[2023-01-21 18:30] LABS: CREATININE, URINE 40.2 MG/DL
[2023-01-21 18:32] LABS: MALB URINE SIEMENS < 3.0 MG/L; MAU/CREAT RATIO 7.4 MCG/MG (0.0-30.0)
== END ==
LOC: M LAB REF 17:05
PROVIDERS: ATTEND Nurse Practitioner Family
DX: E11.65 Type 2 diabetes mellitus with hyperglycemia (principal)

== ENCOUNTER → 2023-02-12 | Outpatient (CLI) | payer OTHER ==
[~2023-02-12] MED LIST changes: +BARIUM SULFATE 700 MG TABLET (E-Z-DISK) As Ordered ONE; +E-Z-GAS II EFFERVESCENT PACKET (SODIUM BICARB./CITRIC ACID/SIMETHICONE) As Ordered ONE; +E-Z-PAQUE 96% w/w SUSP 176GM BTL As Ordered ONE; +VARIBAR NECTAR 40% w/v 240ML SUSP BTL As Ordered ONE; +VARIBAR PUDDING 40% w/v 230ML TUBE As Ordered ONE
== END ==
LOC: M RAD 10:36
PROVIDERS: ATTEND Physician Assistant Medical
DX: R13.10 Dysphagia, unspecified (principal)

== ENCOUNTER → 2023-03-13 | Outpatient (CLI) | payer MEDICARE, OTHER ==
[~2023-03-13] MED LIST changes: -BARIUM SULFATE 700 MG TABLET (E-Z-DISK) As Ordered ONE; -E-Z-GAS II EFFERVESCENT PACKET (SODIUM BICARB./CITRIC ACID/SIMETHICONE) As Ordered ONE; -E-Z-PAQUE 96% w/w SUSP 176GM BTL As Ordered ONE; -VARIBAR NECTAR 40% w/v 240ML SUSP BTL As Ordered ONE; -VARIBAR PUDDING 40% w/v 230ML TUBE As Ordered ONE
[2023-03-13 19:23] LABS: BLOOD UREA NITROGEN 11 MG/DL (9-23); CREATININE FOR GFR 0.59 MG/DL (0.55-1.30); GLOMERULAR FILTRATION RATE > 60.0 (>39)
== END ==
LOC: M LABDRWAD 12:02
PROVIDERS: ATTEND Physician Assistant Medical
DX: R22.1 Localized swelling, mass and lump, neck (principal)

== ENCOUNTER → 2023-08-04 | Outpatient (CLI) | payer MEDICARE ==
[~2023-08-04] MED LIST changes: +ZOLO100T PO
== END ==
LOC: M EKG 11:55
PROVIDERS: ATTEND Nurse Practitioner Family
DX: Z01.818 Encounter for other preprocedural examination (principal)

== ENCOUNTER → 2023-08-04 | Outpatient (REF) | payer MEDICARE ==
[2023-08-04 18:18] LABS: BASO % 0.4 % (0.0-1.0); EOS # 0.1 10^3/uL (0.0-0.5); EOS % 1.2 % (0.0-3.0); HEMATOCRIT 45.5 % (36.0-47.0); HEMOGLOBIN 15.3 g/dl (12.0-15.5); LYMPH # 2.2 10^3/uL (1.5-5.0); LYMPH % 24.7 % (24.0-44.0); MEAN CORPUSCULAR HEMOGLOBIN 33.8 pg (27.0-33.0); MEAN CORPUSCULAR HGB CONC 33.6 g/dl (32.0-36.5); MEAN CORPUSCULAR VOLUME 100.4 fl (80.0-96.0); MONO # 0.7 10^3/uL (0.0-0.8); MONO % 7.2 % (2.0-8.0); NEUTROPHILS # 5.9 10^3/uL (1.5-8.5); NEUTROPHILS % 66.3 % (36.0-66.0); PLATELET COUNT, AUTOMATED 242 10^3/uL (150-450); RED BLOOD COUNT 4.53 10^6/uL (4.00-5.40)
[2023-08-04 18:40] LABS: BLOOD UREA NITROGEN 14 MG/DL (9-23); CALCIUM LEVEL 9.8 MG/DL (8.3-10.6); CARBON DIOXIDE LEVEL 28 MMOL/L (20-31); CHLORIDE LEVEL 104 MMOL/L (98-107); CREATININE FOR GFR 0.71 MG/DL (0.55-1.30); GLOMERULAR FILTRATION RATE > 60.0 (>39); GLUCOSE, FASTING 126 MG/DL (74-106); POTASSIUM SERUM 4.6 MMOL/L (3.5-5.1); SODIUM LEVEL 139 MMOL/L (136-145)
== END ==
LOC: M LAB REF 17:06
PROVIDERS: ATTEND Nurse Practitioner Family
DX: Z01.818 Encounter for other preprocedural examination (principal)

== ENCOUNTER 2023-08-14 08:49 | Day surgery (SDC) | payer BC, MEDICARE, OTHER ==
[~2023-08-14] VITALS: Ht 162.6 cm; Wt 69.9 kg
[2023-08-14] MEDS ORDERED: fentaNYL 100 MCG/2 ML INJECTION As Ordered ONE (09:28)
[2023-08-14] MEDS ORDERED: MIDAZOLAM INJ 2MG/2ML VIAL As Ordered ONE (09:29)
[2023-08-14] MEDS ORDERED: ROCURONIUM BROMIDE 50MG/5ML VIAL As Ordered ONE (09:29)
[2023-08-14] MEDS ORDERED: ONDANSETRON 4MG 2ML VIAL As Ordered ONE (09:29)
[2023-08-14] MEDS ORDERED: propofoL 200 MG/20 ML VIAL As Ordered ONE (09:29)
[2023-08-14] MEDS ORDERED: LIDOCAINE 2% 100MG/5ML SDV (FOR ANES.) As Ordered ONE (09:29)
[2023-08-14] MEDS ORDERED: BIOT1CAP2 PO (09:32)
[2023-08-14] MEDS ORDERED: ACETAMINOPHEN 1000MG 100ML IV BAG As Ordered ONE (09:33)
[2023-08-14] MEDS ORDERED: GLUCOSE 4GM CHEW TABLET PO PRN (09:40)
[2023-08-14] MEDS ORDERED: DEXTROSE 50% 50ML SYRINGE IV PRN (09:40)
[2023-08-14] MEDS ORDERED: GLUCAGON INJ 1MG VIAL SC PRN (09:40)
[2023-08-14] MEDS ORDERED: INSULIN LISPRO (NovoLOG) PER UNIT SC PRN (09:40)
[2023-08-14] MEDS: LR 1,000 ML IV SCH (09:53)
[2023-08-14] MEDS ORDERED: OXYMETAZOLINE 0.05% NASAL SPRAY (AFRIN) As Ordered ONE (11:35)
[2023-08-14] MEDS ORDERED: SUCCINYLCHOLINE 100MG/5ML SYRINGE As Ordered ONE (12:15)
[2023-08-14] MEDS: ceFAZolin 2 GM/D5W 50 ML IV BAG As Ordered ONE (12:31)
[2023-08-14] MEDS: metroNIDAZOLE/NACL 500MG(5MG/ML) 100ML BAG As Ordered ONE (12:49)
[2023-08-14] MEDS ORDERED: SUGAMMADEX SODIUM 500 MG/5 ML VIAL (BRIDION) As Ordered ONE (12:50)
[2023-08-14] MEDS: TRIAMCINOLONE ACETONIDE SUSP 40MG/ML 1ML VIAL As Ordered ONE (12:50)
[2023-08-14] MEDS ORDERED: LIDOCAINE W/EPINEPHRINE 1% 20ML VIAL As Ordered ONE (13:19)
[2023-08-14] MEDS ORDERED: SILVER NITRATE APPLICATOR (1 = QTY 10) As Ordered ONE (13:22)
[2023-08-14] MEDS ORDERED: oxyCODONE 5MG TAB PO PRN (13:35)
[2023-08-14] MEDS ORDERED: fentaNYL 100 MCG/2 ML INJECTION IV PRN (13:35)
[2023-08-14] MEDS ORDERED: ONDANSETRON 4MG 2ML VIAL IV PRN (13:35)
[2023-08-14] MEDS: HYDROMORPHONE HCL 0.5 MG/ 0.5 ML SYRINGE IV PRN (13:51)
[2023-08-14] MEDS: LABETALOL 100MG/20ML VIAL IV PRN (13:58)
[2023-08-14 15:08] VITALS: BP 171/77; TEMP 98; O2SAT 94
[2023-08-14] MEDS ORDERED: LABETALOL 100MG/20ML VIAL As Ordered ONE (16:28)
== END 2023-08-14 15:15 | disposition home or self-care (01) ==
LOC: M SDC 08:49
PROVIDERS: ATTEND Otolaryngology
DX: K11.23 Chronic sialoadenitis (principal); E11.9 Type 2 diabetes mellitus without complications; I10 Essential (primary) hypertension; E78.00 Pure hypercholesterolemia, unspecified; K76.0 Fatty (change of) liver, not elsewhere classified; J45.909 Unspecified asthma, uncomplicated; R91.8 Other nonspecific abnormal finding of lung field; Z79.899 Other long term (current) drug therapy; Z79.84 Long term (current) use of oral hypoglycemic drugs; M81.0 Age-related osteoporosis without current pathological fracture; Z87.891 Personal history of nicotine dependence; Z79.51 Long term (current) use of inhaled steroids
CPT/HCPCS: 42699; 88305; J0131; J0330; J0690; J1100; J1170; J1836; J1920; J2250; J2405; J3010; J3301

== ENCOUNTER → 2024-07-15 | Outpatient (REF) | payer MEDICARE ==
[~2024-07-15] MED LIST changes: +BIOT1CAP2 PO
[2024-07-15 18:23] LABS: ALBUMIN 3.9 G/DL (3.2-5.2); ALKALINE PHOSPHATASE 105 U/L (35-104); ALT/SGPT 16 U/L (7.0-40); AST/SGOT 9 U/L (<34); BILIRUBIN,TOTAL 0.8 MG/DL (0.3-1.2); BLOOD UREA NITROGEN 12 MG/DL (9-23); CALCIUM LEVEL 9.7 MG/DL (8.3-10.6); CARBON DIOXIDE LEVEL 27 MMOL/L (20-31); CHLORIDE LEVEL 111 MMOL/L (98-107); CHOLESTEROL LEVEL 237 MG/DL (<200); CHOLESTEROL RISK RATIO 4.93 (<5); CREATININE FOR GFR 0.69 MG/DL (0.55-1.30); GLOMERULAR FILTRATION RATE > 60.0 (>39); GLUCOSE, FASTING 154 MG/DL (74-106); MAGNESIUM LEVEL 1.8 MG/DL (1.8-2.4); POTASSIUM SERUM 4.4 MMOL/L (3.5-5.1); SODIUM LEVEL 145 MMOL/L (136-145); TOTAL PROTEIN 6.7 G/DL (5.7-8.2); TRIGLYCERIDES LEVEL 250 MG/DL (<150)
[2024-07-15 18:24] LABS: BASO % 0.4 % (0.0-1.0); EOS # 0.2 10^3/uL (0.0-0.5); EOS % 2.5 % (0.0-3.0); HEMATOCRIT 41.8 % (36.0-47.0); HEMOGLOBIN 14.2 g/dl (12.0-15.5); LYMPH # 2.1 10^3/uL (1.5-5.0); LYMPH % 25.5 % (24.0-44.0); MEAN CORPUSCULAR HEMOGLOBIN 31.8 pg (27.0-33.0); MEAN CORPUSCULAR VOLUME 93.5 fl (80.0-96.0); MONO # 0.6 10^3/uL (0.0-0.8); MONO % 6.7 % (2.0-8.0); NEUTROPHILS # 5.3 10^3/uL (1.5-8.5); NEUTROPHILS % 64.3 % (36.0-66.0); PLATELET COUNT, AUTOMATED 245 10^3/uL (150-450); RED BLOOD COUNT 4.47 10^6/uL (4.00-5.40); WHITE BLOOD COUNT 8.3 10^3/uL (4.0-10.0)
[2024-07-15 18:25] LABS: THYROID STIMULATING HORMONE 1.771 uIU/ML (0.55-4.78); TOTAL 25(OH) VITAMIN D 77.8 NG/ML (20.0-100.0)
[2024-07-15 18:35] LABS: HEMOGLOBIN A1c 6.9 % (4.0-6.0)
== END ==
LOC: M LAB REF 16:36
PROVIDERS: ATTEND Nurse Practitioner Family
DX: E66.3 Overweight (principal); E55.9 Vitamin D deficiency, unspecified; E07.9 Disorder of thyroid, unspecified

== ENCOUNTER → 2024-09-14 | Outpatient (CLI) | payer MEDICARE | LOC: M WUC 10:34 | PROVIDERS: ATTEND Nurse Practitioner Family | DX: M25.531 Pain in right wrist (principal) ==

== ENCOUNTER 2024-10-21 10:42 | Day surgery (SDC) | payer MEDICARE ==
[~2024-10-21] VITALS: Ht 162.6 cm; Wt 69.2 kg
[~2024-10-21 10:42] MED LIST changes: +ATOR1TAB19 PO; +FLUTISP; +LIDOCAINE 2% 100MG/5ML SDV (FOR ANES.) As Ordered ONE; +LORA-1041 PO; +TRUL0.5I; +VITA100093 PO; +propofoL 200 MG/20 ML VIAL As Ordered ONE
[2024-10-21] MEDS ORDERED: GLYCOPYRROLATE INJ 0.2 MG/ML 2 ML VIAL As Ordered ONE (13:04)
[2024-10-21] MEDS ORDERED: GLUCAGON INJ 1MG VIAL As Ordered ONE (13:09)
[2024-10-21 13:30] VITALS: TEMP 97.8
[2024-10-21 13:50] VITALS: BP 142/72; O2SAT 97
== END 2024-10-21 13:59 | disposition home or self-care (01) ==
LOC: M OPP 10:42
PROVIDERS: ATTEND Surgery
DX: Z12.11 Encounter for screening for malignant neoplasm of colon (principal); D12.6 Benign neoplasm of colon, unspecified; K57.30 Diverticulosis of large intestine without perforation or abscess without bleeding; K44.9 Diaphragmatic hernia without obstruction or gangrene; K29.70 Gastritis, unspecified, without bleeding; R10.13 Epigastric pain; Z79.84 Long term (current) use of oral hypoglycemic drugs; Z79.85 Long-term (current) use of injectable non-insulin antidiabetic drugs; Z79.899 Other long term (current) drug therapy; J45.909 Unspecified asthma, uncomplicated; Z87.891 Personal history of nicotine dependence
CPT/HCPCS: 43239; 45385; 88305; J1596; J1610

== ENCOUNTER → 2024-10-29 | Outpatient (REF) | payer MEDICARE ==
[~2024-10-29] MED LIST changes: -LIDOCAINE 2% 100MG/5ML SDV (FOR ANES.) As Ordered ONE; -propofoL 200 MG/20 ML VIAL As Ordered ONE
[2024-10-29 16:02] LABS: ALBUMIN 3.9 G/DL (3.2-5.2); ALKALINE PHOSPHATASE 95 U/L (35-104); ALT/SGPT 15 U/L (7.0-40); AST/SGOT 9 U/L (<34); BILIRUBIN,TOTAL 0.9 MG/DL (0.3-1.2); BLOOD UREA NITROGEN 13 MG/DL (9-23); CALCIUM LEVEL 9.1 MG/DL (8.3-10.6); CARBON DIOXIDE LEVEL 27 MMOL/L (20-31); CHLORIDE LEVEL 107 MMOL/L (98-107); CHOLESTEROL LEVEL 124 MG/DL (<200); CHOLESTEROL RISK RATIO 2.83 (<5); CREATININE FOR GFR 0.66 MG/DL (0.55-1.30); GLOMERULAR FILTRATION RATE > 90.0 (>39); GLUCOSE, FASTING 99 MG/DL (74-106); HDL CHOLESTEROL 43.7 MG/DL (>40); LDL CHOLESTEROL 59.1 MG/DL (<100); NON-HDL-C 80.3 MG/DL; POTASSIUM SERUM 4.6 MMOL/L (3.5-5.1); SODIUM LEVEL 143 MMOL/L (136-145); TOTAL PROTEIN 6.3 G/DL (5.7-8.2); TRIGLYCERIDES LEVEL 106 MG/DL (<150)
== END ==
LOC: M LAB REF 14:58
PROVIDERS: ATTEND Nurse Practitioner Family
DX: E78.5 Hyperlipidemia, unspecified (principal)

== ENCOUNTER → 2025-03-08 | Outpatient (REF) | payer MEDICARE ==
[2025-03-08 15:30] LABS: BASO # 0.0 10^3/uL (0.0-0.2); BASO % 0.3 % (0.0-1.0); EOS # 0.2 10^3/uL (0.0-0.5); EOS % 2.0 % (0.0-3.0); LYMPH # 2.0 10^3/uL (1.5-5.0); LYMPH % 20.5 % (24.0-44.0); MONO # 0.7 10^3/uL (0.0-0.8); MONO % 6.9 % (2.0-8.0); NEUTROPHILS # 6.7 10^3/uL (1.5-8.5); NEUTROPHILS % 69.8 % (36.0-66.0); PLATELET COUNT, AUTOMATED 230 10^3/uL (150-450)
[2025-03-08 15:37] LABS: ALT/SGPT 24.0 U/L (7.0-40); AST/SGOT 22.0 U/L (<34); CALCIUM LEVEL 9.5 MG/DL (8.3-10.6); CARBON DIOXIDE LEVEL 25.0 MMOL/L (20-31); CHLORIDE LEVEL 101.0 MMOL/L (98-107); CHOLESTEROL LEVEL 191.0 MG/DL (<200); CHOLESTEROL RISK RATIO 3.7 (<5); CREATININE FOR GFR 0.75 MG/DL (0.55-1.30); GLOMERULAR FILTRATION RATE 83.0 (>39); LDL CHOLESTEROL 112.8 MG/DL (<100); MAGNESIUM LEVEL 1.8 MG/DL (1.8-2.4); NON-HDL-C 139.4 MG/DL; POTASSIUM SERUM 4.3 MMOL/L (3.5-5.1); SODIUM LEVEL 137.0 MMOL/L (136-145); TRIGLYCERIDES LEVEL 133.0 MG/DL (<150)
== END ==
LOC: M LAB REF 14:31
PROVIDERS: ATTEND Nurse Practitioner Family
DX: E78.5 Hyperlipidemia, unspecified (principal); E66.3 Overweight